=== PATIENT | male | born 1960 | race Caucasian/White ===

== ENCOUNTER 2024-11-26 18:55 | Observation (INO) | payer MEDICAID, SELFPAY ==
[2024-11-26] VITALS (15 sets, daily range): BP systolic 109–147; BP diastolic 59–85; PULSE 68–81; RESP 12–18; TEMP 36.4–37.2; O2SAT 99–100; BMI 17.4
--- NOTE | 2024-11-26 18:57 | ECG_ITS ---
APPROVED REPORT Exam: Resting ECG HR:65 bpm ECG Measurements Heart Rate 65 AXES IN 144 P 85 QRSd 101 QRS 100 QT 383 T 88 QTc 394 Conclusion SINUS RHYTHM WITH MARKED SINUS ARRHYTHMIA POSSIBLE RIGHT ATRIAL ENLARGEMENT [0.25mV P-WAVE] BORDERLINE RIGHT AXIS DEVIATION [QRS AXIS > 90] NONSPECIFIC ST ELEVATION [0.05+ mV ST ELEVATION] Went to [employer] per Dr. Hays Electronically signed by : PAULETTE BROWN, 11/26/2024 19:55:52
[2024-11-26] MEDS: HEPARIN SODIUM 5,000 UNIT/ML VIAL 5000 UNIT IV (19:05)
--- NOTE | 2024-11-26 19:05 | IR_ITS ---
APPROVED REPORT Patient Location: [facility] Consultant: ELBA Morrison RT (R) PROCEDURES Left heart catheterization Left ventriculogram Selective coronary angiogram Left internal mammary angiography Selective engagement of saphenous vein graft to first diagonal artery which backfilled and fill the LAD Bilateral selective renal angiography INDICATION Acute anterior ST elevation myocardial infarction, Coronary artery disease, History of coronary bypass surgery, Renal failure creatinine 2.2 suspected renal artery stenosis, Renovascular hypertension, Informed consent was obtained prior to the procedure. COMPLICATIONS None Estimated Blood Loss: Less than 10 mls TECHNIQUE One percent lidocaine used to anesthetize the right groin. The right femoral artery was accessed via the Seldinger technique and a 5 Hungarian sheath was placed in the right femoral artery. A JL 4, JR4 catheter were used to perform left heart catheterization, left ventriculogram selective coronary angiography as well as selective engagement of the solitary vein graft supplying the LAD and the left internal mammary artery. At the end of the procedure the apparatus was removed the groin is reprepped closure change sheath was removed and attempted Angio-Seal device was used to achieve hemostasis however because of patient's thin stature and scant subcutaneous tissue Angio-Seal device could not be deployed. Manual pressure was held and good hemostasis was achieved ANGIOGRAPHIC RESULTS The left main artery Has severe vascular ectasia with massive dilatation with no significant focal stenosis The left anterior descending artery Has severe ostial proximal vascular ectasia with proximal to mid LAD size disparity which looks possibly as if there is 10 to 20% atherosclerotic plaque. There is competitive flow from the saphenous vein graft The circumflex artery Large nondominant with moderate vascular ectasia with no stenosis greater than 10 to 20% The right coronary artery Large dominant with moderate vascular ectasia with no stenosis greater than 10 to 20% The R[place]LL ventriculogram reveals Normal 60% The left ventricular end-diastolic pressure 5 mmHg ERICKSON graft is patent to the chest wall Saphenous vein graft to the first diagonal artery provides antegrade flow to the first diagonal artery and backfills the LAD Right renal artery singular normal Left renal artery singular normal IMPRESSION Severe vascular ectasia involving the left main artery and proximal LAD as described above Minimal atherosclerotic plaque Patent saphenous vein graft to the first diagonal artery which backfills the LAD and has competitive flow with the stockbridge circulation Normal ejection fraction Low LVEDP PLAN 1. Patient is a thin gentleman and a high risk for groin bleed based on his body habitus. Patient is somewhat combative and hyperactive on the table. 2 mg of Ativan IV was given after the cath in order to assist in sedation and allow patient to remain supine and achieve adequate hemostasis 2. I would like one-on-one nursing for at least 3 to 4 hours with vigilant and persistent right groin nursing assessment watching for hematoma 3. Standard therapy for coronary disease 4. Official echocardiogram in the morning 5. IV fluids 6. Supportive care Electronically signed by : Julio C Hays MD 11/26/2024 20:11:05
--- OUTSIDE RECORDS SUMMARY | 2024-11-26 19:06 | XMS_ITS | Encounter Summary ---
Author Organization [facility] Address [address] [place] [address] Care Team Providers Care Drop Tester Name Role Phone Robbin Jeffrey MD Unavailable [phone] Aurora Anderson MD Unavailable Indigo Jj NP Primary Care Provider [phone] Aurora Anderson MD Unavailable Reason for Referral * CAT Scan (Routine) - Closed Specialty Diagnoses / Procedures Referred By Clari baez Referred To Contact Radiology Diagnoses New daily persistent headache (ndph) Procedures CT brain without IV contrast Indigo Jj NP [address] [place] [address] Phone: tel: fax: Referral ID Status Reason Start Date Expiration Date Visits Re quested Visits Authorized [id number] Closed 04/02/2024 05/31/2024 1 1 Encounter Details Date Type Department Care Team (Late st Contact Info) Description 04/02/2024 Outside Orders [facility] Central Scheduling [address] [place] [address] Indigo Jj NP [address] [place], [place] [id number] New daily persistent headache (ndph) (Primary Dx) Social History Tobacco Use Types Packs/Day Years Used Date Smoking Tobacco: Every Day Cigarettes Smokeless Tobacco: Never Alcohol Use Standard Drinks/Week Comments Never 0 (1 standard drink = 0.6 oz pur e alcohol) Utilities Answer Date Recorded In the past 12 months, has t he electric, gas, oil, or water company threatened to shut off services in your home? No 02/18/2024 Interpersonal Safety Answer Date Record ed How often does anyone, adina andersen family and friends, physically hurt you? Never 02/18/2024 How often does anyone, adina andersen family and friends, insult or talk down to you? Never 02/18/2024 How often does anyone, adina andersen family and friends, threaten you with harm? Never 02/18/2024 How often does anyone, adina andersen family and friends, scream or curse at you? Never 02/18/2024 Housing Stability Answer Date Recorded What is your living situation today? I have a [facility] place to live 02/18/[address] you li ve. Do you have problems with any of the following? None of the above 02/18/2024 Food Insecurity Answer Date Recorded Within the past 12 months, y ou worried that your food would run out before you got money to buy more. Never true 02/18/2024 Within the past 12 months, t he food you bought just didn't last and you didn't have money to get more. Never true 02/18/2024 Transportation Needs Answer Date Record ed In the past 12 months, has l ack of reliable transportation kept you from medical appointments, meetings, work or from getting things needed for daily living? Yes 02/18/2024 Financial Resource Strain Answer Date R ecorded How hard is it for you to pa y for the very basics like food, housing, medical care, and heating? Would you say it is: Not hard at all 02/18/2024 Employment Answer Date Recorded Do you want help finding or keeping work or a job? I do not need or want help 02/18/2024 Family and Community Support Answer Leland e Recorded If for any reason you need h elp with day-to-day activities such as bathing, preparing meals, shopping, managing finances, etc., do you get the help you need? I don't need any help 02/18/2024 Feeling Lonely or Isolated 0 02/17 Educational Attainment Answer Date Saqib rded Do you speak a language other than Nauruan at ho pa? No 02/18/2024 Do you want help with school or training? For example, starting or completing job training or getting a high school diploma, GED or equivalent. No 02/18/2024 Physical Activity Answer Date Recorded Number of minutes of exercise per week 360 02/18/2024 Alcohol Use Answer Date Recorded 5 or More Drinks Per Day Past 12 Months 0 02/18/2024 Depression Answer Date Recorded Calculation of above two rows 0 Stress Answer Date Recorded Stress means a situation in which a person feels tense, restless, nervous, or anxious, or is unable to sleep at night because his or her mind is troubled all the time. Do you feel this kind of stress these days? Not at all 02/18/2024 Disabilities Answer Date Recorded Because of a physical, menta l, or emotional condition, do you have serious difficulty concentrating, remembering, or making decisions? (5 years or older) No 02/18/2024 Because of a physical, menta l, or emotional condition, do you have difficulty doing errands alone such as visiting a doctor's office or shopping? (15 years or older) No 02/18/2024 Substance Use Answer Date Recorded How many times in the past y ear have you used prescription drugs for non-medical reasons? Never 02/18/2024 How many times in the past year have you used [place] legal drugs? Never 02/18/2024 Sex and Gender Information Value Date Recorded Sex Assigned at Not on file Legal Sex Male 1:46 PM CDT Gender Identity Not on file Sexual Orientation Not on file documented as of this encounter Functional Status * Are you deaf or do you have serious difficulty hearing? Answer Date of Assessment Author No 02/24/2024 10:13 AM Clara Voss * Are you blind or do you have serious difficulty seeing, even when wearing glasses? Answer Date of Assessment Author No 02/24/2024 10:13 AM Clara Voss * Do you have serious difficulty walking or climbing stairs? Answer Date of Assessment Author No 02/24/2024 10:13 AM Clara Voss * Do you have serious difficulty dressing or bathing? Answer Date of Assessment Author No 02/24/2024 10:13 AM Clara Voss * Because of a physical, mental, or emotional condition, do you have serious difficulty doing errandsalone such as visiting the doctor? Answer Date of Assessment Author No 02/24/2024 10:13 AM Clara Voss documented as of this encounter Mental Status * Because of a physical, mental, or emotional condition, do you have serious difficulty concentrating, remembering, or making decisions? (5 years old or older) Answer Entry Date Author No 02/24/2024 10:13 AM Clara Voss documented in this encounter Plan of Treatment Scheduled Orders Name Type Priority Associated Diagnoses Orde r Schedule CT brain without IV contrast Imaging Routine New daily persistent headache (ndph) Expected: 04/02/2024, Expires: 05/02/2025 documented as of this encounter Visit Diagnoses Diagnosis New daily persistent headache (ndph)- Primary documented in this encounter Care Teams Drop Tester Relationship Specialty Start Date End Date Indigo Jj, SERA [address] [place] [address] PCP - General Nurse Practitioner 03/06/24 [place] [address] [place] [address] [address] [place], [place] [id number] Cardiothoracic Surgery 02/27/24 [facility] [address] [place] [phone] Interventional Cardiology 02/27/24 Aurora Anderson [facility] [address] [address] [address] [place] [id number] Interventional Cardiology 07/27/24 [facility] 02/20/24 [facility] 02/20/24 documented as of this encounter
--- OUTSIDE RECORDS SUMMARY | 2024-11-26 19:06 | XMS_ITS | Referral Summary ---
Author Organization [employer] Address [address] [place] [address] Care Team Providers Care Manager Location Name Role Phone Robbin Jeffrey MD Unavailable [phone] Aurora Anderson MD Unavailable Indigo Jj NP Primary Care Provider [phone] Aurora Anderson MD Unavailable Encounters Date Type Department Care Team Description 09/01/2024 Travel 09/01/2024 12:54 PM EDT - 09/01/2024 3:12 PM EDT Emergency [facility] Emergency Department [address] [place] [phone] Paul German DO Constipation (Primary Dx); Lower back pain; Kidney cysts; Constipation, unspecified constipation type; Low back pain, unspecified back pain laterality, unspecified chronicity, unspecified whether sciatica present Discharge Disposition: Home or Self Care from Last 3 Months Allergies No known active allergies Medications bupropion HCl (WELLBUTRIN ORAL) Take by mouth Unsure of dosage . Active nicotine 21-14-7 mg/[address] onto the skin. Active Active Problems Problem Noted Date Diagnosed Date Coronary artery disease invo lving [place] coronary artery of [place] heart without angina pectoris 04/01/2024 Primary hypertension 04/01/2024 Mixed hyperlipidemia 04/01/2024 Tobacco abuse 04/01/2024 STEMI (ST elevation myocardial infarction) 02/17 Social History Tobacco Use Types Packs/Day Years Used Date Smoking Tobacco: Every Day Cigarettes Smokeless Tobacco: Never Tobacco Cessation:Ready to Q uit: Not Asked; Counseling Given: Not Answered Alcohol Use Standard Drinks/Week Comments Never 0 [...] your living situation today? I have a [facility] place to live 02/18/2024 Think about the [...] Do you speak a language other than Serbian at [facility]? No 02/18/2024 Do you want help with school or training? For example, starting or completing job training or getting a high school diploma, GED or equivalent. No 02/18/2024 Physical Activity Answer Date Recorded Number of minutes of exercise per week 360 02/18/2024 Alcohol Use Answer Date Recorded 5 or More Drinks Per Day Past 12 Months 0 04/16/2024 Depression Answer Date Recorded Calculation of above [...] on file Sexual Orientation Not on file Last Filed Vital Signs Vital Sign Reading Time Taken Comments Blood Pressure 157/105 09/01/2024 3:00 PM EDT Pulse 62 09/01/2024 3:00 PM EDT Temperature 36.8 C (98.2 F) 09/01/2024 3:00 PM EDT Respiratory Rate 16 09/01/2024 3:00 PM EDT Oxygen Saturation 98% 09/01/2024 1:19 PM EDT Inhaled Oxygen Concentration 40% 02/21/2024 2 :30 PM EDT Weight 56.7 kg (125 lb) 09/01/2024 12:52 PM EDT Height 180.3 cm (5' 11 ) 09/01/2024 12:52 PM EDT Body Mass Index 17.43 09/01/2024 12:52 PM EDT Functional Status * Are you deaf or [...] Author No 02/24/2024 10:13 AM Clara Voss Mental Status * Because of a physical, mental, or emotional condition, do you have serious difficulty concentrating, remembering, or making decisions? (5 years old or older) Answer Entry Date Author No 02/24/2024 10:13 AM Clara Voss Plan of Treatment Not on file Procedures Procedure Name Priority Date/Time Associated Diagnosis Comments CT ABDOMEN/PELVIS WITHOUT IV CONTRAST STAT 09/01/2024 1:57 PM EDT URINALYSIS MICROSCOPIC STAT 1:25 PM EDT URINALYSIS, REFLEX MICROSCOPIC AND CULTURE IF INDICATED STAT 09/01/2024 1:25 PM EDT COMPREHENSIVE METABOLIC PANEL STAT 09/01/2024 1:12 PM EDT CBC W/ AUTO DIFF STAT 09/01/2024 1:12 PM EDT LIPID PANEL Routine 02/20/2024 5:39 AM EDT from Last 3 Months or Most Recently Relevant to Health Maintenance Results * CT ABDOMEN/PELVIS WITHOUT IV CONTRAST Renal Stone Protocol (09/01/2024 1:57 PM EDT) Anatomical Region Laterality Modality Abdomen, Pelvis Computed Tomogra phy (CT) 09/01/2024 2:30 PM EDT Impressions 09/01/2024 2:37 PM EDT No nephrolithiasis. Bilateral renal cysts. Small focus of increased attenuation in the right kidney that likely demonstrates a small complex cyst. Large amount stool noted throughout the colon. Images reviewed, interpreted, and dictated by Dr. Riky Brewer. Transcribed by Hilda Rodriguez PA-C. Narrative 09/01/2024 2:[address] SCAN OF THE ABDOMEN AND PELVIS WITHOUT CONTRAST 09/01/2024 1:44 PM HISTORY: Acute left-sided flank pain, hematuria. COMPARISON: None. PROCEDURE: Axial images were obtained from the lung bases to the pubic symphysis by computed tomography. This study was performed with techniques to keep radiation doses as low as reasonably achievable, (ALARA). Individualized dose reduction techniques using automated exposure control or adjustment of mA and/or kV according to the patient size were employed. FINDINGS: ABDOMEN: The lung bases are clear. The heart size is normal. The limited non-contrast images of the liver are unremarkable. The gallbladder is moderately distended. The spleen is unremarkable. No adrenal masses are seen. The aorta is normal in caliber. There are dense calcifications in the abdominal aorta and iliac vessels. There is no significant free fluid or adenopathy. There is a benign-appearing cyst in the right kidney measuring 2.3 cm. There is a small focus of increased attenuation in the right kidney measuring is 0.6 cm identified on image 39 of series 2. This likely represents a small complex cyst. There is a benign-appearing cyst in the left kidney measuring 4.9 x 4.3 cm. There is no nephrolithiasis. There is no hydronephrosis. PELVIS: The GI tract demonstrates no obstruction. The appendix is not identified. There is a large amount stool noted throughout the colon. There is descending and sigmoid diverticulosis. The urinary bladder is unremarkable. There is no fluid or adenopathy. Procedure Note Riky Brewer MD - 09/01/2024 CT SCAN OF THE ABDOMEN AND PELVIS WITHOUT CONTRAST 09/01/2024 1:44 PM HISTORY: Acute left-sided flank pain, hematuria. COMPARISON: None. PROCEDURE: Axial images were obtained from the lung bases to the pubic symphysis by computed tomography. This study was performed with techniques to keep radiation doses as low as reasonably achievable, (ALARA). Individualized dose reduction techniques using automated exposure control or adjustment of mA and/or kV according to the patient size were employed. FINDINGS: ABDOMEN: The lung bases are clear. The heart size is normal. The limited non-contrast images of the liver are unremarkable. The gallbladder is moderately distended. The spleen is unremarkable. No adrenal masses are seen. The aorta is normal in caliber. There are dense calcifications in the abdominal aorta and iliac vessels. There is no significant free fluid or adenopathy. There is a benign-appearing cyst in the right kidney measuring 2.3 cm. There is a small focus of increased attenuation in the right kidney measuring is 0.6 cm identified on image 39 of series 2. This likely represents a small complex cyst. There is a benign-appearing cyst in the left kidney measuring 4.9 x 4.3 cm. There is no nephrolithiasis. There is no hydronephrosis. PELVIS: The GI tract demonstrates no obstruction. The appendix is not identified. There is a large amount stool noted throughout the colon. There is descending and sigmoid diverticulosis. The urinary bladder is unremarkable. There is no fluid or adenopathy. IMPRESSION: No nephrolithiasis. Bilateral renal cysts. Small focus of increased attenuation in the right kidney that likely demonstrates a small complex cyst. Large amount stool noted throughout the colon. Images reviewed, interpreted, and dictated by Dr. Riky Brewer. Transcribed by Hilda Rodriguez PA-C. Brunilda Aguilera PA-C IMG CT ORDERABLES Final Result * (ABNORMAL) Urinalysis, Reflex Microscopic and Culture If Indicated (09/01/2024 1:25 PM EDT) Color, UA Light Yellow 09/01/2024 1:32 PM EDT [facility] Clarity, UA Clear 09/01/2024 1:32 PM EDT [facility] Specific [place], UA 1.010 1.002 - 1.030 09/01/2024 1:32 PM EDT [facility] pH, UA 6.5 5.0 - 9.0 09/01/2024 1:32 PM EDT [facility] Leukocytes, UA Negative Negative 09/01/2024 1:32 PM EDT [facility] Nitrite, UA Negative Negative 09/01/2024 1:32 PM EDT [facility] Protein, UA Negative Negative 09/01/2024 1:32 PM EDT [facility] Glucose, UA Negative Negative 09/01/2024 1:32 PM EDT [facility] Ketones, UA Negative Negative 09/01/2024 1:32 PM EDT [facility] Bilirubin, UA Negative Negative 09/01/2024 1:32 PM EDT [facility] Blood, UA 2+(A) Negative 09/01/2024 1:32 PM EDT [facility] Urobilinogen, UA 0.2 mg/dL Normal 09/01/2024 1:32 PM EDT [facility] Specimen Source Urine, Clean Catch 09/01/2024 1:32 PM EDT [facility] Urine URINE SPECIMEN COLLECTION, CLEAN CATCH / Unknown 09/01/2024 1:25 PM EDT 09/01/2024 1:26 PM EDT us Brunilda Aguilera PA-C URINE ORDERABLES Final Result [facility] [address] [place] [address] [phone] * (ABNORMAL) Urinalysis Microscopic Only (09/01/2024 1:25 PM EDT) WBC, UA Occasional None Seen, Occasional , 0-5 /HPF 09/01/2024 1:40 PM EDT [facility] RBC, UA 10-20(A) None Seen, Rare /HPF 09/01/2024 1:40 PM EDT [facility] Bacteria, UA Trace(A) None Seen 09/01/2024 1:40 PM EDT [facility] Mucus Trace Trace 09/01/2024 1:40 PM EDT [facility] Urine URINE SPECIMEN COLLECTION, CLEAN CATCH / Unknown 09/01/2024 1:25 PM EDT 09/01/2024 1:26 PM EDT Brunilda Aguilera PA-C URINE ORDERABLES Final Result [facility] [address] [place] [address] * (ABNORMAL) CBC with Auto Diff (09/01/2024 1:12 PM EDT) WBC 6.6 4.8 - 10.8 K/ L 09/01/2024 1:29 PM EDT [facility] RBC 4.88 3.80 - 5.20 M/ L 09/01/2024 1:29 PM EDT [facility] Hemoglobin 14.6 12.8 - 17.4 GM/DL 09/01/2024 1:29 PM EDT [facility] Hematocrit 44.2 39.0 - 51.0 % 09/01/2024 1:29 PM EDT [facility] MCV 91 81 - 101 fL 09/01/2024 1:29 PM EDT [facility] MCH 29.9 27.0 - 34.0 pg 09/01/2024 1:29 PM EDT [facility] MCHC 33.0 32.0 - 36.0 GM/DL 09/01/2024 1:29 PM EDT [facility] RDW 13.3 11.5 - 14.5 % 09/01/2024 1:29 PM EDT [facility] Platelets 257 150 - 400 K/CU MM 09/01/2024 1:29 PM EDT [facility] MPV 10.1 9.4 - 12.4 fL 09/01/2024 1:29 PM EDT [facility] Nucleated Red Blood Cell 0.0 0 - 0.2 % 09/01/2024 1:29 PM EDT [facility] % Neutros 51 37 - 80 % 09/01/2024 1:29 PM EDT [facility] % Lymphs 33 10 - 50 % 09/01/2024 1:29 PM EDT [facility] % Monos 11 5 - 13 % 09/01/2024 1:29 PM EDT [facility] % Eos 4 0 - 7 % 09/01/2024 1:29 PM EDT [facility] % Baso 1 0 - 3 % 09/01/2024 1:29 PM EDT [facility] NRBC Absolute <0.01 0 - 0.012 K/ul 09/01/2024 1:29 PM EDT [facility] # Neutros 3.33 2.00 - 6.90 K/ L 09/01/2024 1:29 PM EDT [facility] # Lymphs 2.18 0.60 - 3.40 K/ L 09/01/2024 1:29 PM EDT [facility] # Monos 0.70 0.00 - 0.90 K/ L 09/01/2024 1:29 PM EDT [facility] # Eos 0.24 0.00 - 0.70 K/ L 09/01/2024 1:29 PM EDT [facility] # Baso 0.07 0.00 - 0.20 K/ L 09/01/2024 1:29 PM EDT [facility] Immature Granulocytes-Re lative 0.90 % 09/01/2024 1:29 PM EDT [facility] # IG 0.06(H) 0.00 - 0.00 K/uL 09/01/2024 1:29 PM EDT [facility] Blood Venipuncture / Unknown 09/01/2024 1:12 PM EDT 09/01/2024 1:16 PM EDT Narrative [facility] - 09/01/2024 1:29 PM EDT When CBC w/ Auto Diff is ordered the lab will add a Manual Differential as a quality check at no additional charge if: Lymphocytes greater than seventy five percent with normal or increased WBC Monocytes greater than Fifteen percent Basophil greater than four percent Bands >10% or several immature myeloids are seen on scan Blast? Flag noted Atypical Lymph flag noted us Brunilda Aguilera PA-C LAB BLOOD ORDERABLES Final Resu lt [facility] [address] [place] [address] * (ABNORMAL) Comprehensive metabolic panel (09/01/2024 1:12 PM EDT) Sodium 138 136 - 145 meq/L 09/01/2024 1:37 PM EDT [facility] Potassium 4.0 3.5 - 5.1 meq/L 09/01/2024 1:37 PM EDT [facility] Chloride 104 98 - 107 meq/L 09/01/2024 1:37 PM EDT [facility] CO2 30 21 - 32 meq/L 09/01/2024 1:37 PM EDT [facility] Calcium 9.0 8.5 - 10.1 mg/dL 09/01/2024 1:37 PM EDT [facility] Glucose 101(H) 70 - 99 mg/dL 09/01/2024 1:37 PM EDT [facility] BUN 16 7 - 18 mg/dL 09/01/2024 1:37 PM EDT [facility] Creatinine 1.10 0.70 - 1.20 mg/dL 09/01/2024 1:37 PM EDT [facility] BUN/Creatinine 15 09/01/2024 1:37 PM EDT [facility] Albumin 3.7 3.4 - 5.0 g/dL 09/01/2024 1:37 PM EDT [facility] Alkaline Phosphatase 87 46 - 116 U/L 09/01/2024 1:37 PM EDT [facility] ALT 14 12 - 78 U/L 09/01/2024 1:37 PM EDT [facility] AST 16 15 - 37 U/L 09/01/2024 1:37 PM EDT [facility] Total Bilirubin 0.3 0.2 - 1.0 mg/dL 09/01/2024 1:37 PM EDT [facility] Protein, Total 7.6 6.4 - 8.2 gm/dL 09/01/2024 1:37 PM EDT [facility] Anion Gap 8(L) 11 - 22 09/01/2024 1:37 PM EDT [facility] A/G Ratio 0.9 09/01/2024 1:37 PM EDT [facility] Globulin 3.9 g/dL 09/01/2024 1:37 PM EDT [facility] Osmolality Calc 277.0 mOsm/kg 1:37 PM EDT [facility] eGFR (mL/min/1.73m2) >60 >=60 mL/min/1.7 3m2 09/01/2024 1:37 PM EDT [facility] Comment:ESTIMATED GFR IS NOT ACCURATE CREATININE CLEARANCE IN PREDICTING GLOMERULAR FILTRATION RATE. ESTIMATED GFR IS NOT APPLICABLE FOR DIALYSIS PATIENTS. Blood Venipuncture / Unknown 09/01/2024 1:12 PM EDT 09/01/2024 1:16 PM EDT us Brunilda Aguilera PA-C LAB BLOOD ORDERABLES Final Resu lt [facility] [address] [place] [address], [facility] [phone] * (ABNORMAL) Lipid panel (02/20/2024 5:39 AM EDT) Triglycerides 74 0 - 249 mg/dL 02/20/2024 6:44 AM EDT [facility] Cholesterol 200(H) 0 - 199 mg/dL 02/20/2024 6:44 AM EDT [facility] Comment: 200 to 239 mg/dL = Moderate (borderline) >239 mg/dL = High HDL Cholesterol 48 >=40 mg/dL 02/20/2024 6:44 AM EDT [facility] Comment: >=60 mg/dL = Desirable <40 mg/dL = Increased Risk All other components are listed individually or are calculations VLDL Cholesterol 14.8 5 - 40 mg/dL 02/20/2024 6:44 AM EDT [facility] Cholesterol/HDL ratio 4.2(H) 0.0 - 3.2 02/20/2024 6:44 AM EDT [facility] LDl/HDL Ratio 3 0 - 4 02/20/2024 6:44 AM EDT [facility] RISK COMP 4 02/20/2024 6:44 AM EDT [facility] LDL Cholesterol, Calculated 137(H) 0 - 99 mg/dL 02/20/2024 6:44 AM EDT [facility] Blood Venipuncture / Unknown 02/20/2024 5:39 AM EDT 02/20/2024 5:59 AM EDT [facility] LAB BLOOD ORDERABLES Final Result Performing Organization Address [facility]/State/[facility] Co de Phone Number [facility] [address] [phone] from Last 3 Months or Most Recently Relevant to Health Maintenance Insurance [employer]ICA[employer] Advance Directives For more information, please contact: [phone] * Full Code (Latest Code Status on File) Date Activated Date Inactivated Comments 02/21/2024 10:53 AM 02/24/2024 12:54 PM * Full Code Date Activated Date Inactivated Comments 02/18/2024 4:06 AM 02/21/2024 10:53 AM Care Teams Manager Location Relationship Specialty Start Date End Date Indigo Jj, SERA [address] [place] [address] PCP - General Nurse Practitioner 03/06/24 Robbin Jeffrey MD [address] [place] [address] [address] [place], [place] [id number] Cardiothoracic Surgery 02/27/24 Aurora Anderson MD [address] [place], [place] [address] , [place] [phone] Interventional Cardiology 02/27/24 Aurora Anderson MD [address] [phone] Interventional Cardiology 07/27/24 [facility] 02/20/24 [facility] 02/20/24
--- OUTSIDE RECORDS SUMMARY | 2024-11-26 19:06 | XMS_ITS | Clinical Summary ---
Author Organization [employer] Address [address] [place] [address] Care Team Providers Care Truer Pinion And Wheel Name Role Phone Robbin Jeffrey MD Unavailable [phone] Aurora Anderson MD Unavailable Indigo Jj NP Primary Care Provider [phone] Aurora Anderson MD Unavailable Allergies No known active allergies Medications bupropion HCl (WELLBUTRIN ORAL) Take by mouth Unsure of dosage . Active nicotine 21-14-7 mg/[address] the skin. Active Active Problems Problem Noted Date Diagnosed Date Coronary artery disease invo [place]ving [place] coronary artery of [place] heart without angina pectoris 04/01/2024 Primary hypertension 04/01/2024 Mixed hyperlipidemia 04/01/2024 Tobacco abuse 04/01/2024 STEMI (ST elevation myocardial infarction) 02/17 Encounters Date Type Department Care Team Description 09/01/2024 12:54 PM EDT - 09/01/2024 3:12 PM EDT Emergency [facility] Emergency Department [address] [place] [phone] Paul German DO Constipation (Primary Dx); Lower back pain; Kidney cysts; Constipation, unspecified constipation type; Low back pain, unspecified back pain laterality, unspecified chronicity, unspecified whether sciatica present Discharge Disposition: Home or Self Care 09/01/2024 Travel from Last 3 Months Social History Tobacco Use Types Packs/Day Years [...] your living situation today? I have a [facility] place to live 02/18/2024 Think about the [...] Do you speak a language other than [place] at [facility]? No 02/18/2024 Do you want help with [...] Mass Index 17.43 09/01/2024 12:52 PM EDT Plan of Treatment Health Maintenance Due Date Last Done Comments CT Colonography 1960 Colonoscopy 1960 Colorectal Cancer Screening 1960 FOBT/FIT 1960 Fit-DNA (Cologuard) 1960 Sigmoidoscopy 1960 Depression Screening (12+) 1972 HIV Screening 11/07/1975 Hepatitis C Screening 1978 DTAP/TDAP/TD VACCINES (1 - Tdap) 11/07/1979 Pneumococcal 50+ years (1 of 2 - PCV) 11/07/1979 Shingles Vaccine (Zoster) (1 of 2) 2010 Respiratory Syncytial Virus (RSV) Adult or (1 - Risk 60-74 years 1-dose series) 2020 COVID-19 VACCINE ( - 2023- season) 2024 Influenza Vaccine (Season Ended) 2025 Tobacco Cessation Counseling and Screening (12+) 03/2503/25/2024 Lipid Panel 02/19/2027 02/20/2024 Procedures Procedure Name Priority Date/Time Associated Diagnosis [...] by Hilda Rodriguez PA-C. Brunilda Aguilera PA-C IM CT ORDERABLES Final Result * (ABNORMAL) Urinalysis, Reflex Microscopic and Culture If Indicated (09/01/2024 1:25 PM EDT) Color, UA Light Yellow 09/01/2024 1:32 PM EDT [facility] Clarity, UA Clear 09/01/2024 1:32 PM EDT [facility] Specific [place], UA 1.010 1.002 - 1.030 09/01/2024 1:32 PM EDT [facility] pH, UA 6.5 5.0 - 9.0 09/01/2024 1:32 PM EDT [facility] Leukocytes, UA Negative Negative 09/01/2024 1:32 PM EDT [facility] Nitrite, UA Negative Negative 09/01/2024 1:32 PM EDT [facility] Protein, UA Negative Negative 09/01/2024 1:32 PM EDT [facility] Glucose, UA Negative Negative 09/01/2024 1:32 PM EDT [facility] Ketones, UA Negative Negative 09/01/2024 1:32 PM EDT [facility] Bilirubin, UA Negative Negative 09/01/2024 1:32 PM EDT [facility] Blood, UA 2+(A) Negative 09/01/2024 1:32 PM EDT [facility] Urobilinogen, UA 0.2 mg/dL Normal 09/01/2024 1:32 PM EDT [facility] Specimen Source Urine, Clean Catch 09/01/2024 1:32 PM EDT [facility] Urine URINE SPECIMEN COLLECTION, CLEAN CATCH / Unknown 09/01/2024 1:25 PM EDT 09/01/2024 1:26 PM EDT us Brunilda Aguilera PA-C URINE ORDERABLES Final Result [facility] [address] [place] [id number] [phone] * (ABNORMAL) Urinalysis Microscopic Only (09/01/2024 1:25 PM EDT) WBC, UA Occasional None Seen, Occasional , 0-5 /HPF 09/01/2024 1:40 PM EDT [facility] RBC, UA 10-20(A) None Seen, Rare /HPF 09/01/2024 1:40 PM EDT [facility] Bacteria, UA Trace(A) None Seen 09/01/2024 1:40 PM EDT [facility] Mucus Trace Trace 09/01/2024 1:40 PM EDT [facility] Urine URINE SPECIMEN COLLECTION, CLEAN CATCH / Unknown 09/01/2024 1:25 PM EDT 09/01/2024 1:26 PM EDT Brunilda Aguilera PA-C URINE ORDERABLES Final Result [facility] [address] [place] [address], [facility] [phone] * (ABNORMAL) CBC with Auto Diff (09/01/2024 1:12 PM EDT) WBC 6.6 4.8 - 10.8 K/ L 09/01/2024 1:29 PM EDT [facility] RBC 4.88 3.80 - 5.20 M/ L 09/01/2024 1:29 PM EDT [facility] Hemoglobin 14.6 12.8 - 17.4 GM/DL 09/01/2024 1:29 PM EDT [facility] Hematocrit 44.2 39.0 - 51.0 % 09/01/2024 1:29 PM EDT [facility] MCV 91 81 - 101 fL 09/01/2024 1:29 PM EDT [facility] MCH 29.9 27.0 - 34.0 pg 09/01/2024 1:29 PM EDT [facility] MCHC 33.0 32.0 - 36.0 GM/DL 09/01/2024 1:29 PM EDT [facility] RDW 13.3 11.5 - 14.5 % 09/01/2024 1:29 PM EDT [facility] Platelets 257 150 - 400 K/CU MM 09/01/2024 1:29 PM EDT [facility] MPV 10.1 9.4 - 12.4 fL 09/01/2024 1:29 PM EDT [facility] Nucleated Red Blood Cell 0.0 0 - 0.2 % 09/01/2024 1:29 PM EDT [facility] % Neutros 51 37 - 80 % 09/01/2024 1:29 PM EDT [facility] % Lymphs 33 10 - 50 % 09/01/2024 1:29 PM EDT [facility] % Monos 11 5 - 13 % 09/01/2024 1:29 PM EDT [facility] % Eos 4 0 - 7 % 09/01/2024 1:29 PM EDT [facility] % Baso 1 0 - 3 % 09/01/2024 1:29 PM EDT [facility] NRBC Absolute <0.01 0 - 0.012 K/ul 09/01/2024 1:29 PM EDT [facility] # Neutros 3.33 2.00 - 6.90 K/ L 09/01/2024 1:29 PM EDT [facility] # Lymphs 2.18 0.60 - 3.40 K/ L 09/01/2024 1:29 PM EDT [facility] # Monos 0.70 0.00 - 0.90 K/ L 09/01/2024 1:29 PM EDT [facility] # Eos 0.24 0.00 - 0.70 K/ L 09/01/2024 1:29 PM EDT [facility] # Baso 0.07 0.00 - 0.20 K/ L 09/01/2024 1:29 PM EDT [facility] Immature Granulocytes-Re lative 0.90 % 09/01/2024 1:29 PM EDT [facility] # IG 0.06(H) 0.00 - 0.00 K/uL 09/01/2024 1:29 PM EDT [facility] Blood Venipuncture / Unknown 09/01/2024 1:12 PM EDT 09/01/2024 1:16 PM EDT Narrative [facility] - 09/01/2024 1:29 PM EDT When [...] PA-C LAB BLOOD ORDERABLES Final Resu lt [facility] [address] [place], [place] [address] [phone] * (ABNORMAL) Comprehensive metabolic panel (09/01/2024 1:12 PM EDT) Sodium 138 136 - 145 meq/L 09/01/2024 1:37 PM EDT [facility] Potassium 4.0 3.5 - 5.1 meq/L 09/01/2024 1:37 PM EDT [facility] Chloride 104 98 - 107 meq/L 09/01/2024 1:37 PM EDT [facility] CO2 30 21 - 32 meq/L 09/01/2024 1:37 PM EDT [facility] Calcium 9.0 8.5 - 10.1 mg/dL 09/01/2024 1:37 PM EDT [facility] Glucose 101(H) 70 - 99 mg/dL 09/01/2024 1:37 PM EDT [facility] BUN 16 7 - 18 mg/dL 09/01/2024 1:37 PM EDT [facility] Creatinine 1.10 0.70 - 1.20 mg/dL 09/01/2024 1:37 PM EDT [facility] BUN/Creatinine 15 09/01/2024 1:37 PM EDT [facility] Albumin 3.7 3.4 - 5.0 g/dL 09/01/2024 1:37 PM EDT [facility] Alkaline Phosphatase 87 46 - 116 U/L 09/01/2024 1:37 PM EDT [facility] ALT 14 12 - 78 U/L 09/01/2024 1:37 PM EDT [facility] AST 16 15 - 37 U/L 09/01/2024 1:37 PM EDT [facility] Total Bilirubin 0.3 0.2 - 1.0 mg/dL 09/01/2024 1:37 PM EDT [facility] Protein, Total 7.6 6.4 - 8.2 gm/dL 09/01/2024 1:37 PM EDT [facility] Anion Gap 8(L) 11 - 22 09/01/2024 1:37 PM EDT [facility] A/G Ratio 0.9 09/01/2024 1:37 PM EDT [facility] Globulin 3.9 g/dL 09/01/2024 1:37 PM EDT [facility] Osmolality Calc 277.0 mOsm/kg 1:37 PM EDT [facility] eGFR (mL/min/1.73m2) >60 >=60 mL/min/1.7 3m2 09/01/2024 1:37 PM EDT [facility] Comment:ESTIMATED GFR IS NOT ACCURATE CREATININE CLEARANCE IN PREDICTING GLOMERULAR FILTRATION RATE. ESTIMATED GFR IS NOT APPLICABLE FOR DIALYSIS PATIENTS. Blood Venipuncture / Unknown 09/01/2024 1:12 PM EDT 09/01/2024 1:16 PM EDT us Brunilda Aguilera PA-C LAB BLOOD ORDERABLES Final Resu lt [facility] [address] [place] [id number], [facility] [phone] * (ABNORMAL) Lipid panel (02/20/2024 5:39 AM EDT) Triglycerides 74 0 - 249 mg/dL 02/20/2024 6:44 AM EDT [facility] Cholesterol 200(H) 0 - 199 mg/dL 02/20/2024 6:44 AM EDT [facility] Comment: 200 to 239 mg/dL = Moderate (borderline) >239 mg/dL = High HDL Cholesterol 48 >=40 mg/dL 02/20/2024 6:44 AM EDT [facility] Comment: >=60 mg/dL = Desirable <40 mg/dL = Increased Risk All other components are listed individually or are calculations VLDL Cholesterol 14.8 5 - 40 mg/dL 02/20/2024 6:44 AM EDT [facility] Cholesterol/HDL ratio 4.2(H) 0.0 - 3.2 02/20/2024 6:44 AM EDT [facility] LDl/HDL Ratio 3 0 - 4 02/20/2024 6:44 AM EDT [facility] RISK COMP 4 02/20/2024 6:44 AM EDT [facility] LDL Cholesterol, Calculated 137(H) 0 - 99 mg/dL 02/20/2024 6:44 AM EDT [facility] Blood Venipuncture / Unknown 02/20/2024 5:39 AM EDT 02/20/2024 5:59 AM EDT Karen Gomesland GILA LAB BLOOD ORDERABLES Final Result [facility] [address] [phone] from Last 3 Months or Most Recently Relevant to Health Maintenance [place] [address] [place] [address] MEDICAID Advance Directives For more information, please contact: [phone] * Full Code (Latest Code Status on File) Date Activated Date Inactivated Comments 02/21/2024 10:53 AM 02/24/2024 12:54 PM * Full Code Date Activated Date Inactivated Comments 02/18/2024 4:06 AM 02/21/2024 10:53 AM Care Teams Truer Pin[employer] And Wheel Relationship Specialty Start Date End Date Indigo Jj, SERA [address] [place] [id number] PCP - General Nurse Practitioner 03/06/24 Robbin Jeffrey MD [address] [place] [address] [address] [place], [place] [id number] Cardiothoracic Surgery 02/27/24 Aurora Anderson MD [address], [facility] [address] [place] [phone] Interventional Cardiology 02/27/24 Aurora Anderson MD [address], [facility] [address] [place] [address] Interventional Cardiology 07/27/24 [facility] 02/20/24 [facility]iac Rehab 02/20/24
[2024-11-26 19:07] LABS: Basophils # 0.1 K/mm3 (0-0.2); Basophils % 0.6 % (0.1-2.0); Eosinophils # 0.2 Kmm3 (0.0-0.4); Eosinophils % 1.4 % (0.1-12.0); Hematocrit 45.4 % (42.0-52.0); Hemoglobin 15.5 g/dL (14.1-18.0); Immature Granulocytes # 0.04 10^3uL; Immature Granulocytes % 0.3 %; Lymphocytes # 2.2 K/mm3 (0.7-4.5); Lymphocytes % 18.5 % (10-50); Mean Corpuscular HGB Conc 34.1 g/dL (31.8-35.4); Mean Corpuscular Hemoglobin 29.9 pg (27.0-31.2); Mean Corpuscular Volume 87.5 fl (80-94); Monocytes % 8.4 % (1.7-9.3); Neutrophils # 8.3 K/mm3 (1.8-7.8); Neutrophils % 70.8 % (37.0-80.0); Nucleated Red Blood Cells # 0 10^3/uL; Nucleated Red Blood Cells % 0 %; Platelet Count 288 K/mm3 (142-424); Red Blood Count 5.19 M/mm3 (4.60-6.20); Red Cell Distribution Width 13.1 % (11.5-17.5); Red Cell Distribution Width-SD 41.9 fL; White Blood Count 11.7 K/mm3 (4.8-10.8)
[2024-11-26 19:09] LABS: Lactate Venous 1.4 mmol/L (0.4-2.0); VBG Base Excess -1.4 mmol/L (-2.4-2.3); VBG HCO3 24.9 mmol/L (23-30); VBG Oxygen Saturation 40.7 % (50-70); VBG PCO2 51.2 mmol/L (35-51); VBG PH 7.31 mmol/L (7.31-7.41); VBG PO2 24.6 mmol/L (28-40); VBG Total CO2 26.5 mmol/L (23-27)
[2024-11-26 19:12] LABS: Albumin Level 5.4 g/dl (3.5-5.0); Chloride 89 mmol/L (98-107); Potassium 4.4 mmoL/L (3.5-5.1); Sodium 130 mmol/L (136-145)
[2024-11-26 19:15] LABS: Alanine Aminotransferase 21 U/L (12-78); Albumin/Globulin Ratio 1.3 (1.1-1.8); Alkaline Phosphatase 97 U/L (38-126); Anion Gap 19.4 mEq/L (5-15); Aspartate Amino Transferase 51 U/L (17-59); Bilirubin,Total 0.7 mg/dl (0.2-1.3); Blood Urea Nitrogen 36 mg/dl (9-20); Calcium 9.9 mg/dl (8.4-10.2); Carbon Dioxide 26 mmol/L (22.0-30.0); Creatine Kinase 630 U/L (55-170); Creatinine Clearance Estimated 27 mL/min (50-200); Estimated Glomerular Filt Rate 30 ml/min (>60); GFR (African American) 37 ML/MIN (>60); Globulin 4.2 g/dL (1.3-3.2); Glucose 110 mg/dl (74-100); Total Protein,Serum 9.6 g/dl (6.3-8.2)
[2024-11-26 19:17] LABS: Activated Partial Thrombo Time 25.1 seconds (22.8-30.6); INR 0.98 (0.9-1.1); Prothrombin Time 10.9 seconds (10.1-12.5)
[2024-11-26 19:21] LABS: Magnesium 2.3 mg/dl (1.6-2.3); Phosphorous 6.1 mg/dl (2.5-4.5)
--- NOTE | 2024-11-26 19:24 | PC.NURSE ---
Late entry: 1910 cathead operator calls to report that they are ready for patient, pt placed on zoll monitoring and taken to cathead operator per this RN, Brayden winter, and CESAR mack.
[2024-11-26] MEDS: LIDOCAINE 1% 10ML MDV 10 ML IJ (19:27)
[2024-11-26] MEDS: HEPARIN 1,000 UNITS/500ML NS (CATH LAB) 3000 UNIT IV (19:27)
[2024-11-26] MEDS: 0.9 % SODIUM CHLORIDE 500 ML 25 ML IV (19:27)
[2024-11-26] MEDS: diphenhydrAMINE 50MG/ML VIAL 50 MG IV (19:28)
[2024-11-26] MEDS: ONDANSETRON 4MG/2ML VIAL 4 MG IV (19:28)
[2024-11-26 19:35] LABS: Troponin I < 0.01 ng/ml (0.00-0.034)
--- NOTE | 2024-11-26 19:35 | HMH.EDCP ---
Discharge Plan Disposition Patient Disposition: Admitted Condition: Fair Clinical Impressions Clinical Impression: ACS (acute coronary syndrome), Rhabdomyolysis Discharge ED Provider: Indigo Nichols HPI General Chief Complaint: Chest Pain Stated Complaint: STEMI Time Seen by Provider: 11/26/24 19:00 Mode of Arrival: EMS Source of Information: Patient and EMS Description of Symptoms (Recalled from ER Triage Doc. by RN): Pt presents to the ed via ems with c/o epigastric/chest cramping that began today approx 1500. Pt reports pain progressing to tightness to left arm. EMS with 12 lead in the field reports possible stemi alert. Pt arrives to room EKG performed and per Dr Hays pt to go to cath. Pt AOx4, nad noted, rr even and non labored, skin pwd. History of Present Illness HPI narrative: This patient is a 64-year-old male with a history of CAD status post CABG presenting to the emergency department for evaluation as a STEMI alert. EMS had texted EKG to Dr. Hays en route, and Dr. Hays activated STEMI alert. Patient reports he started having chest pain going down his left arm that he describes as a cramping around 1500. 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 The pain continued, so he called EMS. EMS noted significant ST changes on EKG in the anterolateral leads. Given this, they sent Dr. Hays who activated the [employer]. Patient received aspirin prior to arrival. He was normotensive and did not receive nitroglycerin. He reports he supposed be on medications including a blood thinner, he is not sure what, but he has not been taking any medications. His CABG was in February at [facility]. Related Data Allergies Allergy/AdvReac Type Severity Reaction Status Date / Time No Known Allergies Allergy Verified 11/26/24 19:10 [facility] Disclaimer: The information contained in this section may have been updated after the patient was seen, as this information can be updated by other users. Social History Smoking Status: Current every day smoker alcohol intake: never current occupational status: employed Travel in the last 8 weeks?: None ROS Obtained: Yes All systems reviewed & no additional complaints except as documented Physical Exam General General appearance: alert and in no apparent distress Comment: Thin, crying out in pain Head Head exam: atraumatic and normocephalic Eye Eye exam: Present normal appearance, PERRL and EOMI ENT ENT exam: Present normal exam, normal oropharynx, mucous membranes moist and normal external ear exam Neck Neck exam: Present normal inspection, full ROM and trachea midline; Absent tenderness Chest Chest inspection: Present normal inspection and symmetric chest wall rise; Absent tenderness Respiratory Respiratory exam: Present normal lung sounds bilaterally; Absent respiratory distress, wheezes, stridor or accessory muscle use Cardiovascular Cardiovascular exam: Present regular rate and normal rhythm Abdominal Exam Abdominal exam: Present soft; Absent distention, tenderness or guarding Extremities Exam Extremities exam: Present normal inspection, full ROM and normal capillary refill; Absent tenderness or edema Back Exam Back exam: Present normal inspection and full ROM; Absent tenderness Neurological Exam Neurological exam: Present alert, oriented X3, CN II-XII intact and normal gait; Absent motor sensory deficit Psychiatric Psychiatric exam: Present normal affect and normal mood Skin Skin exam: Present warm and dry HEART Score HEART Score HEART Score assessment performed?: No Critical Care Critical Care Time Critical Care Time: No Medical Decision Making Navin Inquiry Pt receiving controlled substance: No Vital Signs Vital Signs: 11/26/24 19:04 11/26/24 19:04 11/26/24 19:11 Temperature 98.9 F 98.9 F Temperature Source Oral Pulse Rate 73 73 Pulse Rate [Radial] 73 Respiratory Rate 16 16 Blood Pressure 127/83 Blood Pressure [Right Arm] 127/83 Blood Pressure Mean [Right Arm] 97 Blood Pressure Position Sitting Blood Pressure Position [Right Arm] Sitting 02 Sat by Pulse Oximetry 100 Oxygen Delivery Method Room Air Room Air Lab Data Labs: Lab Results 11/26/24 18:58: WBC 11.7 H, RBC 5.19, Hgb 15.5, Hct 45.4, MCV 87.5, MCH 29.9, MCHC 34.1, RDW 13.1, Plt Count 288, MPV 10.0, Neut % (Auto) 70.8, Lymph % (Auto) 18.5, [place] % (Auto) 8.4, Eos % (Auto) 1.4, Baso % (Auto) 0.6, Neut # (Auto) 8.3 H, Lymph # (Auto) 2.2, [place] # (Auto) 1.0, Eos # (Auto) 0.2, Baso # (Auto) 0.1, PT 10.9, INR 0.98, APTT 25.1, VBG pH 7.31, VBG pCO2 51.2 H, VBG pO2 24.6 L, VBG HCO3 24.9, VBG Total CO2 26.5, VBG O2 Saturation 40.7 L, VBG Base Excess -1.4, VBG Lactic Acid 1.4, Sodium 130 L, Potassium 4.4, Chloride 89 L, Carbon Dioxide 26, Anion Gap 19.4 H, BUN 36 H, Creatinine 2.20 H, Estimated Creat Clear 27, Estimated GFR 30 L, Est GFR ( Amer) 37 L, Glucose 110 H, Calcium 9.9, Phosphorus 6.1 H, Magnesium 2.3, Total Bilirubin 0.7, AST 51, ALT 21, Alkaline Phosphatase 97, Total Creatine Kinase 630 H*, Troponin I < 0.01, Total Protein 9.6 H, Albumin 5.4 H, Globulin 4.2 H, Albumin/Globulin Ratio 1.3 11/26/24 18:58 11/26/24 18:58 Response Orders (Tests/Meds): ED MEDICATIONS Generic Name Dose Route Start Last Admin Trade Name Freq PRN Reason Stop Dose Admin Diazepam 5 mg 11/26/24 19:11 Diazepam 5mg Tablet PO 11/27/24 07:11 ONCE PRN Anxiety Fentanyl Citrate 50 mcg 11/26/24 19:11 Fentanyl 100mcg/2ml Vial IV 11/27/24 07:11 Q3MINP PRN Sedation Fentanyl Citrate 25 mcg 11/26/24 19:11 Fentanyl 100mcg/2ml Vial IV 11/27/24 07:11 Q3MINP PRN Sedation Flumazenil 0.2 mg 11/26/24 19:11 Flumazenil 0.1mg/Ml 5ml Vial IV 11/27/24 07:11 NEEDED PRN Sedation Heparin Sodium (Porcine) 5,000 unit 11/26/24 19:11 Heparin 1,000 Units/Ml 10ml Vial ([employer]sman) IV 11/26/24 23:11 NEEDED PRN Emergency [employer] Hydralazine HCl 20 mg 11/26/24 19:11 Hydralazine 20mg/Ml Vial IV 11/26/24 23:11 ONCE PRN sbp>160 Lactated Ringer's 1,000 mls @ 999 mls/hr 11/26/24 19:04 Lactated Ringer's 1000 Ml Bag IV 11/26/24 20:04 .Q1H1M ONE Adenosine 180 mg/ Sodium 90 mls @ 306.175 mls/hr 11/26/24 19:11 Chloride IV 11/26/24 23:11 ONCE PRN fractional flow reserve 180 MCG/KG/MIN Adenosine 90 mg/ Sodium 90 mls @ 612.349 mls/hr 11/26/24 19:11 Chloride IV 11/26/24 23:11 ONCE PRN fractional flow reserve 180 MCG/KG/MIN Sodium Chloride 1,000 mls @ 25 mls/hr 11/26/24 19:15 11/26/24 19:27 Sod Chloride 0.9% 500ml Bag IV 11/27/24 19:11 25 mls/hr .Q25H ABEL Administration Labetalol HCl 20 mg 11/26/24 19:11 Labetalol 20mg/4ml Syringe IV 11/26/24 23:11 ONCE PRN sbp>160 Lorazepam 1 mg 11/26/24 19:11 Lorazepam 2mg/Ml Vial IV 11/27/24 07:11 ONCE PRN Anxiety Midazolam HCl 1 mg 11/26/24 19:11 Midazolam 2mg/2ml Vial IV 11/27/24 07:11 Q3MINP PRN Sedation Midazolam HCl 1 mg 11/26/24 19:11 Midazolam Hcl 1mg/Ml 5ml Vial IV 11/27/24 07:11 Q3MINP PRN Sedation Naloxone HCl 0.4 mg 11/26/24 19:11 Naloxone 0.4mg/Ml Vial IV 11/27/24 07:11 Q5MINP PRN Decreased Respirations Nitroglycerin 800 mcg 11/26/24 19:11 Nitroglycerin 800mcg/8ml Syr ([employer]sman) IA 11/26/24 23:11 NEEDED PRN Emergency [employer] Promethazine HCl 25 mg 11/26/24 19:11 Promethazine Hcl 25mg/Ml 1ml Vial IV 11/27/24 07:11 NEEDED PRN Nausea And Vomiting Protamine Sulfate 50 mg 11/26/24 19:11 Protamine Sulfate 50mg/5ml Vial ([employer]sman) IV 11/26/24 23:11 ONCE PRN act>200 Sodium Chloride 10 ml 11/26/24 19:11 Sodium Chloride 0.9% 10ml Vial IV 12/26/24 19:10 NEEDED PRN to Dilute Lorazepam inj Discontinued Medications Generic Name Dose Route Start Last Admin Trade Name Kj PRN Reason Stop Dose Admin Diphenhydramine HCl 50 mg 11/26/24 19:11 11/26/24 19:28 Diphenhydramine 50mg/Ml Vial IV 11/26/24 19:12 50 mg ONCE ONE Administration Heparin Sodium (Porcine) 5,000 unit 11/26/24 19:02 11/26/24 19:05 Heparin Sodium 5,000 Unit/Ml Vial IV 11/26/24 19:03 5,000 unit ONCE ONE Administration Heparin Sodium/Sodium Chloride 3,000 unit 11/26/24 19:11 11/26/24 19:27 Heparin 1,000 Units/500ml Ns ([employer]sman) IV 11/26/24 19:12 3,000 unit ONCE ONE Administration Lidocaine HCl 10 ml 11/26/24 19:11 11/26/24 19:27 Lidocaine 1% 10ml Mdv IJ 11/26/24 19:12 10 ml ONCE ONE Administration Lidocaine HCl 10 ml 11/26/24 19:11 Lidocaine 1% 5ml Pf Vial IJ 11/26/24 19:12 ONCE ONE Morphine Sulfate 4 mg 11/26/24 19:11 Morphine 4mg/Ml Syringe IV 11/26/24 19:12 ONCE ONE Ondansetron HCl 4 mg 11/26/24 19:11 11/26/24 19:28 Ondansetron 4mg/2ml Vial IV 11/27/24 07:11 4 mg NEEDED PRN Administration Nausea Sodium Chloride 25 ml 11/26/24 19:11 Sodium Chloride 0.9% 25ml Bag IV 11/26/24 19:12 ONCE ONE Verapamil HCl 2.5 mg 11/26/24 19:11 11/26/24 19:28 Verapamil 2.5mg/Ml 2ml Vial IV 11/26/24 19:12 Not Given ONCE ONE ORDERS Category Date Time Status Activated Partial Thrombo Time Stat Lab 11/26/24 18:58 Completed CK [Creatine Kinase] Stat Lab 11/26/24 18:58 Completed Complete Blood Count Auto Diff Stat Lab 11/26/24 18:58 Completed Comprehensive Metabolic Panel Stat Lab 11/26/24 18:58 Completed HIV Combo Stat Lab 11/26/24 18:58 Received Hepatitis C Ab Qual. W/ RFX Stat Lab 11/26/24 18:58 Received MAG [Magnesium] Stat Lab 11/26/24 18:58 Completed PHOS [Phosphorous] Stat Lab 11/26/24 18:58 Completed Prothrombin Time INR Stat Lab 11/26/24 18:58 Completed Trop I [Troponin I] Stat Lab 11/26/24 18:58 Completed Troponin I Q3H Lab 11/26/24 22:15 Ordered Troponin I Q3H Lab 11/27/24 01:15 Ordered VBG [Venous Blood Gas] Stat RT 11/26/24 18:58 Completed ECG Data Tracing #1: Attestation: I reviewed this ECG and interpreted as documented below: ECG Narrative: Normal sinus rhythm with sinus arrhythmia with a ventricular of [address]/T wave changes in leads V3, V4, V5 and somewhat in V6. Per Dr. Hays, continue with plan to activate the [employer]sman ECG initial impression date: 11/26/24 ECG initial impression time: 18:58 MDM Narrative Medical Decision Narrative: In summary, this patient is a 64-year-old male presenting to the Emergency Department for evaluation of chest pain. He presents as a STEMI alert per EMS. He has been overexerting himself working out in the heat and has not been compliant with his medications. Differential diagnoses considered include but are not limited to STEMI, ACS dehydration, HILARIA, rhabdomyolysis. Ruling out the most morbid conditions drove assessment. It should be noted patient's history includes CAD status post CABG which likely is not at goal therapy given that he is not taking medications. This complicates all aspects of care by increasing patient's risk for morbidity. Patient arrives as a STEMI alert per EMS. On arrival, he is continues to complain of chest pain going down his left arm. EKG obtained demonstrates some ST changes in anterolateral leads. Vitals are stable on cardiac telemetry upon arrival. Given this, I had an interactive discussion with Dr. Hays who recommended loading with 5000 units of heparin and proceeding with plan to go straight to the [employer]oc[employer] Draftsman. Labs were pending at time of transport to the [employer]. He was transported in stable condition.
[2024-11-26] MEDS: MIDAZOLAM HCL 1MG/ML 5ML VIAL 1 MG IV (19:46)
[2024-11-26] MEDS: FENTANYL 100MCG/2ML VIAL 50 MCG IV (19:47)
[2024-11-26] MEDS: PROPOFOL 10MG/ML 20ML VIAL 80 MG IV (19:50)
[2024-11-26] MEDS: LORazepam 2MG/ML VIAL 2 MG IV ×2 (19:57→20:37)
[2024-11-26 20:12] LABS: HIV Combo NEGATIVE (Negative)
[2024-11-26] MEDS: 0.9 % SODIUM CHLORIDE 1000ML 1,000 ML 999 ML IV ×2 (20:12→20:15)
[2024-11-26 20:20] LABS: Hepatitis C Ab Qual. W/ RFX NEGATIVE (Negative)
--- NOTE | 2024-11-26 20:24 | PC.NURSE ---
Patient arrived to floor via stretcher from the Super[facility] at 20:21.
[2024-11-26] MEDS: IOPAMIDOL-370 (76%);100ML BOTTLE 50 ML IV (20:26)
--- NOTE | 2024-11-26 22:47 | P.HP_ITS ---
<Statement entered by Tremaine Rojas MD - 11/27/24 21:28> Rounded on patient after nurse practitioner. Personally examined and interviewed patient. Agree with exam findings and care plan as documented. History of Present Illness *Admission Date: 11/26/24 *Reason for visit:: Chest pain *History of present illness: Mr. Soler is a 64-year-old male presents to the ER with complaints of chest pain. Patient has a past medical history of CAD s/p CABG. Patient unable to provide history due to sedation following cath procedure. History obtained from ER note and hospital staff. Patient presented with chest pain that radiated to left arm. 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 Pain continued therefore patient called EMS. EMS noted significant ST changes on EKG and sent to Dr. Hays, cardiology who activated STEMI alert. Patient is supposed to be on blood thinners but is unsure of which one. Reported that he has not been taking his medications as prescribed. CABG was in February at [place]. STEMI alert activated and patient taken to [facility]. [facility] Disclaimer: The information contained in this section may have been updated after the patient was seen, as this information can be updated by other users. Social History (Updated 11/26/24 @ 19:43 by Indigo Nichols DO) Smoking Status: Current every day smoker alcohol intake: never current occupational status: employed Travel in the last 8 weeks?: None Have you lived/traveled outside US in past 30 days?: No Contact w/someone who lives/traveled outside US past 30 days?: No Exposure to someone with infectious disease in past 14 days?: No Do you have a fever (greater than 100.4 F or 38 C)?: No Have you tested positive for COVID-19?: No Exposed to someone with COVID-19 in past 14 days?: No Do you have a sore throat?: No Do you have a cough?: No Do you have any weakness?: No Do you have any diarrhea?: No Are you experiencing any unusual bleeding?: No Do you have any muscle aches/pain?: No Do you have any abdominal pain?: No Are you experiencing loss of taste or smell?: No Review of Systems Review of Systems Review of systems:: unable to obtain (patient is sedated after heart cath procedure) Meds Home Medications and Allergies New Prescriptions to Start Prescriptions: Allergies Allergy/AdvReac Type Severity Reaction Status Date / Time No Known Allergies Allergy Verified 11/26/24 19:10 Exam Data for Last 24 hours Vital signs and Labs for Last 24 Hours: Temp Pulse Resp BP Pulse Ox O2 Del Method O2 Flow Rate 98.9 F 80 16 127/83 100 Nasal Cannula 3 11/26/24 19:11 11/26/24 20:25 11/26/24 19:11 11/26/24 19:11 11/26/24 20:30 11/26/24 21:00 11/26/24 21:00 Laboratory Results - last 24 hr 11/26/24 18:58: WBC 11.7 H, RBC 5.19, Hgb 15.5, Hct 45.4, MCV 87.5, MCH 29.9, MCHC 34.1, RDW 13.1, Plt Count 288, MPV 10.0, Neut % (Auto) 70.8, Lymph % (Auto) 18.5, [place] % (Auto) 8.4, Eos % (Auto) 1.4, Baso % (Auto) 0.6, Neut # (Auto) 8.3 H, Lymph # (Auto) 2.2, [place] # (Auto) 1.0, Eos # (Auto) 0.2, Baso # (Auto) 0.1, PT 10.9, INR 0.98, APTT 25.1, VBG pH 7.31, VBG pCO2 51.2 H, VBG pO2 24.6 L, VBG HCO3 24.9, VBG Total CO2 26.5, VBG O2 Saturation 40.7 L, VBG Base Excess -1.4, VBG Lactic Acid 1.4, Sodium 130 L, Potassium 4.4, Chloride 89 L, Carbon Dioxide 26, Anion Gap 19.4 H, BUN 36 H, Creatinine 2.20 H, Estimated Creat Clear 27, Estimated GFR 30 L, Est GFR ( Amer) 37 L, Glucose 110 H, Calcium 9.9, Phosphorus 6.1 H, Magnesium 2.3, Total Bilirubin 0.7, AST 51, ALT 21, Alkaline Phosphatase 97, Total Creatine Kinase 630 H*, Troponin I < 0.01, Total Protein 9.6 H, Albumin 5.4 H, Globulin 4.2 H, Albumin/Globulin Ratio 1.3, HCV Ab CAROLYNE w/Rflx PCR Qn Negative, HIV Ag/Ab Combo Qual Negative I & O for Last 24 hours: Intake & Output 11/23/24 11/24/24 11/25/24 11/26/24 23:59 23:59 23:59 23:59 Weight 56.699 kg *Routine HEENT Exam Head: Present normocephalic and atraumatic Eye: Present PERRL ENT: Present mucous membranes moist *Routine Neck Exam Neck: Present supple *Routine Respiratory Exam Respiratory: Present CTA bilaterally and symmetric chest movement; Absent accessory muscle use or respiratory distress *Routine Cardiovascular Exam Cardiovascular: Present RRR, Normal S1 and Normal S2 *Routine Abdominal Exam Abdominal: Present soft and other (decreased bowel sounds); Absent tenderness or distended *Routine Rectal Exam Rectal:: deferred *Routine Genitalia Exam Genitalia:: deferred *Routine Extremities Exam Extremities: Present pulses intact; Absent edema *Routine Skin Exam Skin: Present intact, dry and warm *Routine Neurological Exam Neurological: Absent alert Comments: sedated Assessment and Plan *Assessment and plan (1) Rhabdomyolysis: Status: Acute Qualifiers: Encounter type: initial encounter Category: Medical Code(s): M62.82 - Rhabdomyolysis Plan: Normal saline 200 mL/HR CK on admission 630 Trend CK (2) Chest pain: Status: Acute Category: Medical Code(s): R07.9 - Chest pain, unspecified Plan: S/p cardiac cath:Severe vascular ectasia involving the left main artery and proximal. LAD as described above. Minimal atherosclerotic plaque. Patent saphenous vein graft to the first diagonal artery which backfills the LAD and has competitive flow with the venetie ira circulation. Normal ejection fraction. Low LVEDP Analgesics as needed Femoral approach, monitor for bleeding Patient must lie flat for 6 hours (3) Acute kidney injury: Status: Acute Category: Medical Code(s): N17.9 - Acute kidney failure, unspecified Plan: IV fluids Monitor BMP Avoid nephrotoxic agents (4) Hypoxia: Status: Acute Category: Medical Code(s): R09.02 - Hypoxemia Plan: Continue supplemental oxygen as needed and wean as tolerated (5) Dehydration: Status: Acute Category: Medical Code(s): E86.0 - Dehydration Plan: IV fluids Encourage p.o. fluid intake as tolerated Monitor labs
[2024-11-26 23:23] LABS: Troponin I < 0.01 ng/ml (0.00-0.034)
[2024-11-26] MEDS: 0.9 % SODIUM CHLORIDE 1000ML 1,000 ML 200 ML IV (23:43)
[2024-11-27] VITALS (8 sets, daily range): BP systolic 99–126; BP diastolic 66–81; PULSE 60–74; RESP 12–20; TEMP 36.4–36.9; O2SAT 98–100; BMI 16.9
[2024-11-27 02:20] LABS: Troponin I < 0.01 ng/ml (0.00-0.034)
[2024-11-27] MEDS: 0.9 % SODIUM CHLORIDE 1000ML 1,000 ML 200 ML IV (04:40)
--- NOTE | 2024-11-27 06:04 | PC.NURSE ---
Pt is alert and oriented x4 and currently tolerating RA well at this time. Pt arrived from the manager laboratory on 3L of O2, this nurse was able to wean pt O2 to RA, pt is now sating @ 100%. Pt has rested well this shift and denies pain. Pt remained supine until 3am, Pt cath site and dressing are clean and dry. no signs of bleeding noted. Pt did c/o of hiccups and request medication for it, new orders (see MAR)
[2024-11-27 06:07] LABS: Basophils # 0.1 K/mm3 (0-0.2); Basophils % 0.8 % (0.1-2.0); Eosinophils # 0.3 Kmm3 (0.0-0.4); Hematocrit 38.5 % (42.0-52.0); Immature Granulocytes # 0.03 10^3uL; Immature Granulocytes % 0.3 %; Lymphocytes % 29.1 % (10-50); Mean Corpuscular HGB Conc 33.5 g/dL (31.8-35.4); Mean Corpuscular Hemoglobin 29.7 pg (27.0-31.2); Mean Corpuscular Volume 88.5 fl (80-94); Mean Platelet Volume 10.1 fl (7.4-10.4); Monocytes # 1.2 K/mm3 (0.1-1.0); Monocytes % 11.9 % (1.7-9.3); Neutrophils # 5.8 K/mm3 (1.8-7.8); Neutrophils % 54.9 % (37.0-80.0); Nucleated Red Blood Cells # 0 10^3/uL; Nucleated Red Blood Cells % 0 %; Platelet Count 239 K/mm3 (142-424); Red Blood Count 4.35 M/mm3 (4.60-6.20); Red Cell Distribution Width-SD 42.5 fL; White Blood Count 10.5 K/mm3 (4.8-10.8)
[2024-11-27] MEDS: METOCLOPRAMIDE 10MG TABLET 10 MG PO (06:13)
[2024-11-27 06:14] LABS: Chloride 104 mmol/L (98-107); Sodium 134 mmol/L (136-145)
[2024-11-27 06:17] LABS: Blood Urea Nitrogen 25 mg/dl (9-20); Carbon Dioxide 21 mmol/L (22.0-30.0); Creatine Kinase 491 U/L (55-170); Creatinine Clearance Estimated 45 mL/min (50-200); Estimated Glomerular Filt Rate 56 ml/min (>60); GFR (African American) 67 ML/MIN (>60)
[2024-11-27 06:18] LABS: Calcium 8.1 mg/dl (8.4-10.2); Glucose 89 mg/dl (74-100); Magnesium 2.2 mg/dl (1.6-2.3)
[2024-11-27 07:36] LABS: Hemoglobin 12.9 g/dL (14.1-18.0)
--- NOTE | 2024-11-27 07:36 | EXP.DC.SUM ---
General Admission date:: 11/26/24 Discharge date: 11/27/24 HPI HPI HPI: Mr. Soler is a 64-year-old male presents to the ER with complaints of chest pain. Patient has a past medical history of CAD s/p CABG. Patient unable to provide history due to sedation following cath procedure. History obtained from ER note and hospital staff. Patient presented with chest pain that radiated to left arm. 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 Pain continued therefore patient called EMS. EMS noted significant ST changes on EKG and sent to Dr. Hays, cardiology who activated STEMI alert. Patient is supposed to be on blood thinners but is unsure of which one. Reported that he has not been taking his medications as prescribed. CABG was in February at [place]. STEMI alert activated and patient taken to [facility]. Exam Data for Last 24 hours Vital signs and Labs for Last 24 Hours: Temp Pulse Resp BP Pulse Ox O2 Del Method O2 Flow Rate 97.5 F L 64 14 99/68 L 100 Room Air 1 11/27/24 04:00 11/27/24 04:00 11/27/24 04:00 11/27/24 04:00 11/27/24 04:00 11/27/24 05:00 11/27/24 01:45 Laboratory Results - last 24 hr 11/26/24 18:58: WBC 11.7 H, RBC 5.19, Hgb 15.5, Hct 45.4, MCV 87.5, MCH 29.9, MCHC 34.1, RDW 13.1, Plt Count 288, MPV 10.0, Neut % (Auto) 70.8, Lymph % (Auto) 18.5, [place] % (Auto) 8.4, Eos % (Auto) 1.4, Baso % (Auto) 0.6, Neut # (Auto) 8.3 H, Lymph # (Auto) 2.2, [place] # (Auto) 1.0, Eos # (Auto) 0.2, Baso # (Auto) 0.1, PT 10.9, INR 0.98, APTT 25.1, VBG pH 7.31, VBG pCO2 51.2 H, VBG pO2 24.6 L, VBG HCO3 24.9, VBG Total CO2 26.5, VBG O2 Saturation 40.7 L, VBG Base Excess -1.4, VBG Lactic Acid 1.4, Sodium 130 L, Potassium 4.4, Chloride 89 L, Carbon Dioxide 26, Anion Gap 19.4 H, BUN 36 H, Creatinine 2.20 H, Estimated Creat Clear 27, Estimated GFR 30 L, Est GFR ( Amer) 37 L, Glucose 110 H, Calcium 9.9, Phosphorus 6.1 H, Magnesium 2.3, Total Bilirubin 0.7, AST 51, ALT 21, Alkaline Phosphatase 97, Total Creatine Kinase 630 H*, Troponin I < 0.01, Total Protein 9.6 H, Albumin 5.4 H, Globulin 4.2 H, Albumin/Globulin Ratio 1.3, HCV Ab CAROLYNE w/Rflx PCR Qn Negative, HIV Ag/Ab Combo Qual Negative 11/26/24 22:44: Troponin I < 0.01 11/27/24 01:37: Troponin I < 0.01 11/27/24 05:53: WBC 10.5, RBC 4.35 L, Hct 38.5 L, MCV 88.5, MCH 29.7, MCHC 33.5, RDW 13.0, Plt Count 239, MPV 10.1, Neut % (Auto) 54.9, Lymph % (Auto) 29.1, [place] % (Auto) 11.9 H, Eos % (Auto) 3.0, Baso % (Auto) 0.8, Neut # (Auto) 5.8, Lymph # (Auto) 3.0, [place] # (Auto) 1.2 H, Eos # (Auto) 0.3, Baso # (Auto) 0.1, Sodium 134 L, Potassium 4.0, Chloride 104, Carbon Dioxide 21 L, Anion Gap 13.0, BUN 25 H D, Creatinine 1.30 H D, Estimated Creat Clear 45, Estimated GFR 56 L, Est GFR ( Amer) 67 D, Glucose 89, Calcium 8.1 L, Phosphorus 3.0 D, Magnesium 2.2, Total Creatine Kinase 491 H I & O for Last 24 hours: Intake & Output 11/24/24 11/25/24 11/26/24 11/27/24 23:59 23:59 23:59 23:59 Intake Total 500 / 500 Output Total 650 / 650 Balance -150 / -150 Weight 56.699 kg 54.885 kg Results Data Completed and Pending Labs on day of discharge: Labs from last 24 hours 11/27/24 11/27/24 11/26/24 05:53 01:37 22:44 WBC 10.5 RBC 4.35 L Hgb Hct 38.5 L MCV 88.5 MCH 29.7 MCHC 33.5 RDW 13.0 Plt Count 239 MPV 10.1 Neut % (Auto) 54.9 Lymph % (Auto) 29.1 [place] % (Auto) 11.9 H Eos % (Auto) 3.0 Baso % (Auto) 0.8 Neut # (Auto) 5.8 Lymph # (Auto) 3.0 [place] # (Auto) 1.2 H Eos # (Auto) 0.3 Baso # (Auto) 0.1 PT INR APTT VBG pH VBG pCO2 VBG pO2 VBG HCO3 VBG Total CO2 VBG O2 Saturation VBG Base Excess VBG Lactic Acid Sodium 134 L Potassium 4.0 Chloride 104 Carbon Dioxide 21 L Anion Gap 13.0 BUN 25 H D Creatinine 1.30 H D Estimated Creat Clear 45 Estimated GFR 56 L Est GFR ( Amer) 67 D Glucose 89 Calcium 8.1 L Phosphorus 3.0 D Magnesium 2.2 Total Bilirubin AST ALT Alkaline Phosphatase Total Creatine Kinase 491 H Troponin I < 0.01 < 0.01 Total Protein Albumin Globulin Albumin/Globulin Ratio HCV Ab CAROLYNE w/Rflx PCR Qn HIV Ag/Ab Combo Qual 11/26/24 18:58 WBC 11.7 H RBC 5.19 Hgb 15.5 Hct 45.4 MCV 87.5 MCH 29.9 MCHC 34.1 RDW 13.1 Plt Count 288 MPV 10.0 Neut % (Auto) 70.8 Lymph % (Auto) 18.5 [place] % (Auto) 8.4 Eos % (Auto) 1.4 Baso % (Auto) 0.6 Neut # (Auto) 8.3 H Lymph # (Auto) 2.2 [place] # (Auto) 1.0 Eos # (Auto) 0.2 Baso # (Auto) 0.1 PT 10.9 INR 0.98 APTT 25.1 VBG pH 7.31 VBG pCO2 51.2 H VBG pO2 24.6 L VBG HCO3 24.9 VBG Total CO2 26.5 VBG O2 Saturation 40.7 L VBG Base Excess -1.4 VBG Lactic Acid 1.4 Sodium 130 L Potassium 4.4 Chloride 89 L Carbon Dioxide 26 Anion Gap 19.4 H BUN 36 H Creatinine 2.20 H Estimated Creat Clear 27 Estimated GFR 30 L Est GFR ( Amer) 37 L Glucose 110 H Calcium 9.9 Phosphorus 6.1 H Magnesium 2.3 Total Bilirubin 0.7 AST 51 ALT 21 Alkaline Phosphatase 97 Total Creatine Kinase 630 H* Troponin I < 0.01 Total Protein 9.6 H Albumin 5.4 H Globulin 4.2 H Albumin/Globulin Ratio 1.3 HCV Ab CAROLYNE w/Rflx PCR Qn Negative HIV Ag/Ab Combo Qual Negative DS: Diagnosis Discharge Diagnosis (1) Rhabdomyolysis: Status: Acute Code(s): M62.82 - Rhabdomyolysis Qualifiers: Encounter type: initial encounter (2) Chest pain: Status: Acute Code(s): R07.9 - Chest pain, unspecified (3) Acute kidney injury: Status: Acute Code(s): N17.9 - Acute kidney failure, unspecified (4) Hypoxia: Status: Acute Code(s): R09.02 - Hypoxemia (5) Dehydration: Status: Acute Code(s): E86.0 - Dehydration Meds Home Medications and Allergies Home Medications ?Medication ?Instructions ?Recorded ?Confirmed ?Type No Known Home Medications 11/27/24 11/27/24 History New Prescriptions to Start Prescriptions: Allergies Allergy/AdvReac Type Severity Reaction Status Date / Time No Known Allergies Allergy Verified 11/26/24 19:10 Discharge Plan Disposition Patient Disposition: Home, Self-Care Condition: Fair Follow up Plan Follow up with: Chuck Dewitt MD [Primary Care Provider, Internal Medicine] - See instructions Julio C Hays MD [Staff Physician, Cardiology] - Enter time for follow up Prescriptions/Medication Reconciliation: No Action No Known Home Medications Patient Discharge Instructions Print Language: Egyptian Providers Primary Care Provider: Chuck Dewitt Admit Provider: Tremaine Rojas Attending Provider: Tremaine Rojas
--- NOTE | 2024-11-27 08:44 | CA_ITS ---
APPROVED REPORT EXAM: Comprehensive 2D, Doppler, and color-flow Echocardiogram Administrative Supervisor: Gilma Gibbs RDCS Ht: 5 ft 11 in Wt: 121lbs BSA: 1.70 BP: 127/83 mmHg Indications: CAD STEMI M-Mode Dimensions RVDd 1.34 cm (0.9-2.6) LA Diam 3.01 cm (1.9-4.0) LVDd 5.15 cm (3.5-5.7) LVDs 3.74 cm (3.5-5.7) IVSd 0.88 cm (0.6-1.1) PWd 0.70 cm (0.6-1.1) EF (Teich) 52.90% FS 27.40% EDV (Teich) 126.60 mL TAPSE 1.47 (<1.7) ESV (Teich) 59.60 mL LV Diastology E Decel Time 287 (160-240 msec) E/A Ratio 0.9 Mitral Valve MV E Max Adams. 52.0 (40-130 cm/s) MV A Velocity 60.0 (40-130 cm/s) E/A Ratio 0.86 MV PHT 84.0 ms Tricuspid Valve TR P. Velocity 194.00 cm/s RAP Estimate 10.00 mmHg RVSP 25.10 mmHg Left Ventricle The left ventricle is normal size. The left ventricular systolic function is normal. The left ventricular ejection fraction is within the normal range. There is increased LV wall thickness. There is normal LV segmental wall motion. The left ventricular diastolic function is normal. LVEF is 60%. Right Ventricle The right ventricle is normal size. The right ventricular systolic function is normal. Atria The left atrium size is normal. The right atrium size is normal. There is no Doppler evidence of interatrial shunt. Aortic Valve Aortic valve is mildly thickened. There is no aortic valvular stenosis. No aortic regurgitation is present. Mitral Valve The mitral valve is normal in structure. No evidence of mitral valve stenosis. There is no mitral valve regurgitation noted. Tricuspid Valve Tricuspid valve is grossly normal in structure and function. Mild tricuspid regurgitation. RVSP 20-25 mmHg. Pulmonic Valve The pulmonary valve is normal in structure. Trace pulmonic regurgitation. Great Vessels The aortic root is normal in size. The aortic root is normal in size. IVC is normal in size and collapses >50% with inspiration. Pericardium There is no pericardial effusion. Other Information Study Quality: Adequate Conclusion Normal biventricular systolic function. Mild TR. Electronically signed by : Teresita Schmidt MD 11/27/2024 22:52:09
--- NOTE | 2024-11-27 08:45 | P.CONCA_ITS ---
History of Present Illness History of Present Illness Consult date: 11/27/24 Requesting physician: Tremaine Rojas Consult reason: chest pain Chief complaint: STEMI Additional Medical History:: 1. CAD with history of CABG in February/2024 at [facility] in [place], [place]. A. STEMI alert, 11/26/2024, in setting of chest pain with [address] segment elevation in leads V3 through V5 on EKG B. Left heart catheterization, 11/26/2024, severe vascular ectasia involving the left main artery and proximal LAD. Minimal atherosclerotic plaque. Patent SVG to first diagonal which backfills the LAD with competitive flow from the chitim[place] circulation. Normal EF. LVEDP low at 5 mmHg. Bilateral single normal renal arteries. 2. Hyperlipidemia A. Statin therapy 3. Chronic tobacco and marijuana use 4. Dehydration with mild rhabdomyolysis, 11/26/2024 History of present illness: 64-year-old white male with history of bypass surgery in February of last year presented to the emergency department by EMS for epigastric/chest cramping that began approximately 4 hours prior to admission. This progressed to include tightness in the left arm. Patient had been out in the heat all day working. EKG in the ambulance was transmitted to Dr. Hays with STEMI alert activated. Patient was taken to the cardiac [facility] with no acute stenosis noted. Noted to have significant vascular ectasia and competitive flow down the LAD from his ERICKSON graft and [place] artery. 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 This morning patient states he is feeling better and is anxious to go home. He has not been taking his medications over the last couple of months. I encouraged him to go back on his low-dose baby aspirin and statin therapy. [facility] Disclaimer: The information contained in this section may have been updated after the patient was seen, as this information can be updated by other users. Social History (Updated 11/26/24 @ 19:43 by Indigo Nichols DO) Smoking Status: Current every day smoker alcohol intake: never current occupational status: employed Travel in the last 8 weeks?: None Have you lived/traveled outside US in past 30 days?: No Contact w/someone who lives/traveled outside US past 30 days?: No Exposure to someone with infectious disease in past 14 days?: No Do you have a fever (greater than 100.4 F or 38 C)?: No Have you tested positive for COVID-19?: No Exposed to someone with COVID-19 in past 14 days?: No Do you have a sore throat?: No Do you have a cough?: No Do you have any weakness?: No Do you have any diarrhea?: No Are you experiencing any unusual bleeding?: No Do you have any muscle aches/pain?: No Do you have any abdominal pain?: No Are you experiencing loss of taste or smell?: No Review of Systems Review of Systems Review of systems:: pertinent systems reviewed and negative unless documented below *Cardiovascular Cardiovascular: Reports chest pain and Reports dyspnea on exertion *Respiratory Respiratory: Reports dyspnea on exertion *Gastrointestinal Gastrointestinal: Reports abdominal pain Exam Data for Last 24 hours Vital signs and Labs for Last 24 Hours: Temp Pulse Resp BP Pulse Ox O2 Del Method O2 Flow Rate 97.5 F L 64 14 99/68 L 100 Room Air 1 11/27/24 04:00 11/27/24 04:00 11/27/24 04:00 11/27/24 04:00 11/27/24 04:00 11/27/24 07:00 11/27/24 01:45 Laboratory Results - last 24 hr 11/26/24 18:58: WBC 11.7 H, RBC 5.19, Hgb 15.5, Hct 45.4, MCV 87.5, MCH 29.9, MCHC 34.1, RDW 13.1, Plt Count 288, MPV 10.0, Neut % (Auto) 70.8, Lymph % (Auto) 18.5, [place] % (Auto) 8.4, Eos % (Auto) 1.4, Baso % (Auto) 0.6, Neut # (Auto) 8.3 H, Lymph # (Auto) 2.2, [place] # (Auto) 1.0, Eos # (Auto) 0.2, Baso # (Auto) 0.1, PT 10.9, INR 0.98, APTT 25.1, VBG pH 7.31, VBG pCO2 51.2 H, VBG pO2 24.6 L, VBG HCO3 24.9, VBG Total CO2 26.5, VBG O2 Saturation 40.7 L, VBG Base Excess -1.4, VBG Lactic Acid 1.4, Sodium 130 L, Potassium 4.4, Chloride 89 L, Carbon Dioxide 26, Anion Gap 19.4 H, BUN 36 H, Creatinine 2.20 H, Estimated Creat Clear 27, Estimated GFR 30 L, Est GFR ( Amer) 37 L, Glucose 110 H, Calcium 9.9, Phosphorus 6.1 H, Magnesium 2.3, Total Bilirubin 0.7, AST 51, ALT 21, Alkaline Phosphatase 97, Total Creatine Kinase 630 H*, Troponin I < 0.01, Total Protein 9.6 H, Albumin 5.4 H, Globulin 4.2 H, Albumin/Globulin Ratio 1.3, HCV Ab CAROLYNE w/Rflx PCR Qn Negative, HIV Ag/Ab Combo Qual Negative 11/26/24 22:44: Troponin I < 0.01 11/27/24 01:37: Troponin I < 0.01 11/27/24 05:53: WBC 10.5, RBC 4.35 L, Hgb 12.9 L D, Hct 38.5 L, MCV 88.5, MCH 29.7, MCHC 33.5, RDW 13.0, Plt Count 239, MPV 10.1, Neut % (Auto) 54.9, Lymph % (Auto) 29.1, [place] % (Auto) 11.9 H, Eos % (Auto) 3.0, Baso % (Auto) 0.8, Neut # (Auto) 5.8, Lymph # (Auto) 3.0, [place] # (Auto) 1.2 H, Eos # (Auto) 0.3, Baso # (Auto) 0.1, Sodium 134 L, Potassium 4.0, Chloride 104, Carbon Dioxide 21 L, Anion Gap 13.0, BUN 25 H D, Creatinine 1.30 H D, Estimated Creat Clear 45, Estimated GFR 56 L, Est GFR ( Amer) 67 D, Glucose 89, Calcium 8.1 L, Phosphorus 3.0 D, Magnesium 2.2, Total Creatine Kinase 491 H I & O for Last 24 hours: Intake & Output 11/24/24 11/25/24 11/26/24 11/27/24 11:59 11:59 11:59 11:59 Intake Total 500 / 500 Output Total 650 / 650 Balance -150 / -150 Weight 121 lb Constitutional Constitutional: no acute distress *Routine Respiratory Exam Respiratory: Present decreased breath sounds and CTA bilaterally *Routine Cardiovascular Exam Cardiovascular: Present RRR; Absent murmur, gallop or rubs *Routine Extremities Exam Extremities: Absent edema Meds Home Medications and Allergies Home Medications ?Medication ?Instructions ?Recorded ?Confirmed ?Type No Known Home Medications 11/27/2411/02 History New Prescriptions to Start Prescriptions: Allergies Allergy/AdvReac Type Severity Reaction Status Date / Time No Known Allergies Allergy Verified 11/26/24 19:10 Assessment and Plan *Assessment and plan (1) ACS (acute coronary syndrome): Status: Acute Category: Medical Code(s): I24.9 - Acute ischemic heart disease, unspecified (2) Dehydration: Status: Acute Category: Medical Code(s): E86.0 - Dehydration (3) Acute kidney injury: Status: Acute Category: Medical Code(s): N17.9 - Acute kidney failure, unspecified (4) Rhabdomyolysis: Status: Acute Qualifiers: Rhabdomyolysis type: non-traumatic Qualified Code(s): M62.82 - Rhabdomyolysis Category: Medical Code(s): M62.82 - Rhabdomyolysis Plan 1. Chest discomfort with abnormal EKG consistent with ACS/STEMI -LHC showed patent bypass arteries with severe vascular ectasia and competitive flow from the [place] LAD and ERICKSON arteries -Troponins normal -Echo pending 2. Dehydration with HILARIA (creatinine 2.2) and rhabdomyolysis (CPK 630) due to work out in severe heat -Improved with hydration 3. Hyperlipidemia -Resume statin 4. Tobacco and marijuana use -Cessation recommended Right femoral access site looks good with no evidence of hematoma or aneurysmal formation. No abdominal discomfort. Clinically stable from a cardiac standpoint for discharge home. Home medication recommendations: Aspirin 81 mg daily Atorvastatin 40 mg daily Follow-up in our office in 1 to 2 weeks.
[2024-11-27 09:09] LABS: Chol/HDL Ratio 5.6 (1-3.5); Cholesterol 212 mg/dl (140-200); HDL Cholesterol 38 mg/dl (40-60); Triglycerides 83 mg/dl (30-150); VLDL Cholesterol 17 mg/dL (0-40)
[2024-11-27 09:19] LABS: Direct LDL Cholesterol 148.26 mg/dL (100-129)
--- NOTE | 2024-11-27 10:08 | P.DS_ITS ---
<Statement entered by Tremaine Rojas MD - 11/27/24 15:25> Rounded on patient after nurse practitioner. Personally examined and interviewed patient. Agree with exam findings and care plan as documented. General Admission date:: 11/26/24 Discharge date: 11/27/24 HPI HPI HPI: Mr. Soler is a 64-year-old male presents to the ER with complaints of chest pain. Patient has a past medical history of CAD s/p CABG. Patient unable to provide history due to sedation following cath procedure. History obtained from ER note and hospital staff. Patient presented with chest pain th at radiated to left arm. 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 Pain continued therefore patient called EMS. EMS noted significant ST changes on EKG and sent to Dr. Hays, cardiology who activated STEMI alert. Patient is supposed to be on blood thinners but is unsure of which one. Reported that he has not been taking his medications as prescribed. CABG was in February at [facility]. STEMI alert activated and patient taken to [facility]. Hospital Course Hospital Course Hospital Course: Mr. Soler is a 64-year-old male who was admitted from the [facility] after STEMI alert was called. Patient came to the emergency room after working out in the sun all day, began having chest pain, nausea, vomiting, dizziness. On EKG he was found to have a [address] segment elevation in leads V3 through V5. He was taken directly to the [facility] where severe vascular ectasia involving the left main artery and proximal LAD were noted. He had minimal arthrosclerotic's plaque. He did not receive any stenting or intervention. Bilateral single normal renal artery, normal EF. Patient had CABG procedure February 2024 at [facility]. Patient admitted to the hospital overnight for cardiac monitoring, IV fluids. #CAD #History of CABG #STEMI #Status post left heart cath ?Serial troponins remain negative, formal echo read pending. Prelim EF 54%, [facility] report shows normal EF. Patient will follow-up with outpatient cardiology in 1 to 2 weeks. ?Patient doing well this morning, sitting up in bed no complaints of chest pain, nausea, vomiting, dizziness, abdominal pain. States he rested well overnight and was able to tolerate breakfast without problems. ?Patient was prescribed statin and aspirin after CABG procedure. Patient states he is not currently taking discussed the importance of medication adherence. ?Total cholesterol 212, LDL 148. Discussed importance of statin medication. #Dehydration #Rhabdomyolysis ?Initial CK 630, repeat today 491. BUN trending down 36 yesterday, 25 today. Creatinine 2.2 yesterday, 1.3 today. #Tobacco use disorder ?Discussed smoking cessation with the patient. He states that he was smoking 2 packs/day, has been down to 3 to 4 cigarettes/day for the past few months. Not interested in nicotine patches at this time. States he is working on quitting. Total time spent on discharge 34 minutes in counseling, documentation, chart review, and direct care with patient. Exam Data for Last 24 hours Vital signs and Labs for Last 24 Hours: Temp Pulse Resp BP Pulse Ox O2 Del Method O2 Flow Rate 97.5 F L 74 20 126/78 99 Room Air 1 11/27/24 08:00 11/27/24 08:00 11/27/24 08:00 11/27/24 08:00 11/27/24 08:00 11/27/24 09:00 11/27/24 01:45 Laboratory Results - last 24 hr 11/26/24 18:58: WBC 11.7 H, RBC 5.19, Hgb 15.5, Hct 45.4, MCV 87.5, MCH 29.9, MCHC 34.1, RDW 13.1, Plt Count 288, MPV 10.0, Neut % (Auto) 70.8, Lymph % (Auto) 18.5, Sumner % (Auto) 8.4, Eos % (Auto) 1.4, Baso % (Auto) 0.6, Neut # (Auto) 8.3 H, Lymph # (Auto) 2.2, Sumner # (Auto) 1.0, Eos # (Auto) 0.2, Baso # (Auto) 0.1, PT 10.9, INR 0.98, APTT 25.1, VBG pH 7.31, VBG pCO2 51.2 H, VBG pO2 24.6 L, VBG HCO3 24.9, VBG Total CO2 26.5, VBG O2 Saturation 40.7 L, VBG Base Excess -1.4, VBG Lactic Acid 1.4, Sodium 130 L, Potassium 4.4, Chloride 89 L, Carbon Dioxide 26, Anion Gap 19.4 H, BUN 36 H, Creatinine 2.20 H, Estimated Creat Clear 27, Estimated GFR 30 L, Est GFR ( Amer) 37 L, Glucose 110 H, Calcium 9.9, Phosphorus 6.1 H, Magnesium 2.3, Total Bilirubin 0.7, AST 51, ALT 21, Alkaline Phosphatase 97, Total Creatine Kinase 630 H*, Troponin I < 0.01, Total Protein 9.6 H, Albumin 5.4 H, Globulin 4.2 H, Albumin/Globulin Ratio 1.3, HCV Ab CAROLYNE w/Rflx PCR Qn Negative, HIV Ag/Ab Combo Qual Negative 11/26/24 22:44: Troponin I < 0.01 11/27/24 01:37: Troponin I < 0.01 11/27/24 05:53: WBC 10.5, RBC 4.35 L, Hgb 12.9 L D, Hct 38.5 L, MCV 88.5, MCH 29.7, MCHC 33.5, RDW 13.0, Plt Count 239, MPV 10.1, Neut % (Auto) 54.9, Lymph % (Auto) 29.1, Sumner % (Auto) 11.9 H, Eos % (Auto) 3.0, Baso % (Auto) 0.8, Neut # (Auto) 5.8, Lymph # (Auto) 3.0, Sumner # (Auto) 1.2 H, Eos # (Auto) 0.3, Baso # (Auto) 0.1, Sodium 134 L, Potassium 4.0, Chloride 104, Carbon Dioxide 21 L, Anion Gap 13.0, BUN 25 H D, Creatinine 1.30 H D, Estimated Creat Clear 45, Estimated GFR 56 L, Est GFR ( Amer) 67 D, Glucose 89, Calcium 8.1 L, Phosphorus 3.0 D, Magnesium 2.2, Total Creatine Kinase 491 H, Triglycerides 83, Cholesterol 212 H, LDL Cholesterol Direct 148.26 H, VLDL Cholesterol 17, HDL Cholesterol 38 L, Cholesterol/HDL Ratio 5.6 H I & O for Last 24 hours: Intake & Output 11/24/24 11/25/24 11/26/24 11/27/24 23:59 23:59 23:59 23:59 Intake Total 900 / 900 Output Total 1050 / 1050 Balance -150 / -150 Weight 56.699 kg 54.885 kg Constitutional Constitutional: no acute distress and thin *Routine HEENT Exam Head: Present normocephalic Eye: Present EOMI and PERRL ENT: Present mucous membranes moist *Routine Neck Exam Neck: Present supple and full ROM; Absent JVD *Routine Respiratory Exam Respiratory: Present CTA bilaterally, able to speak in complete sentences and symmetric chest movement *Routine Cardiovascular Exam Cardiovascular: Present RRR *Routine Abdominal Exam Abdominal: Present soft and normoactive bowel sounds; Absent tenderness or distended *Routine Extremities Exam Extremities: Present full ROM and normal capillary refill; Absent edema *Routine Skin Exam Skin: Present intact, dry and warm *Routine Neurological Exam Neurological: Present alert, oriented X3 and normal speech Results Data Completed and Pending Labs on day of discharge: Labs from last 24 hours 11/27/24 11/27/24 11/26/24 05:53 01:37 22:44 WBC 10.5 RBC 4.35 L Hgb 12.9 L D Hct 38.5 L MCV 88.5 MCH 29.7 MCHC 33.5 RDW 13.0 Plt Count 239 MPV 10.1 Neut % (Auto) 54.9 Lymph % (Auto) 29.1 Sumner % (Auto) 11.9 H Eos % (Auto) 3.0 Baso % (Auto) 0.8 Neut # (Auto) 5.8 Lymph # (Auto) 3.0 Sumner # (Auto) 1.2 H Eos # (Auto) 0.3 Baso # (Auto) 0.1 PT INR APTT VBG pH VBG pCO2 VBG pO2 VBG HCO3 VBG Total CO2 VBG O2 Saturation VBG Base Excess VBG Lactic Acid Sodium 134 L Potassium 4.0 Chloride 104 Carbon Dioxide 21 L Anion Gap 13.0 BUN 25 H D Creatinine 1.30 H D Estimated Creat Clear 45 Estimated GFR 56 L Est GFR ( Amer) 67 D Glucose 89 Calcium 8.1 L Phosphorus 3.0 D Magnesium 2.2 Total Bilirubin AST ALT Alkaline Phosphatase Total Creatine Kinase 491 H Troponin I < 0.01 < 0.01 Total Protein Albumin Globulin Albumin/Globulin Ratio Triglycerides 83 Cholesterol 212 H LDL Cholesterol Direct 148.26 H VLDL Cholesterol 17 HDL Cholesterol 38 L Cholesterol/HDL Ratio 5.6 H HCV Ab CAROLYNE w/Rflx PCR Qn HIV Ag/Ab Combo Qual 11/26/24 18:58 WBC 11.7 H RBC 5.19 Hgb 15.5 Hct 45.4 MCV 87.5 MCH 29.9 MCHC 34.1 RDW 13.1 Plt Count 288 MPV 10.0 Neut % (Auto) 70.8 Lymph % (Auto) 18.5 Sumner % (Auto) 8.4 Eos % (Auto) 1.4 Baso % (Auto) 0.6 Neut # (Auto) 8.3 H Lymph # (Auto) 2.2 Sumner # (Auto) 1.0 Eos # (Auto) 0.2 Baso # (Auto) 0.1 PT 10.9 INR 0.98 APTT 25.1 VBG pH 7.31 VBG pCO2 51.2 H VBG pO2 24.6 L VBG HCO3 24.9 VBG Total CO2 26.5 VBG O2 Saturation 40.7 L VBG Base Excess -1.4 VBG Lactic Acid 1.4 Sodium 130 L Potassium 4.4 Chloride 89 L Carbon Dioxide 26 Anion Gap 19.4 H BUN 36 H Creatinine 2.20 H Estimated Creat Clear 27 Estimated GFR 30 L Est GFR ( Amer) 37 L Glucose 110 H Calcium 9.9 Phosphorus 6.1 H Magnesium 2.3 Total Bilirubin 0.7 AST 51 ALT 21 Alkaline Phosphatase 97 Total Creatine Kinase 630 H* Troponin I < 0.01 Total Protein 9.6 H Albumin 5.4 H Globulin 4.2 H Albumin/Globulin Ratio 1.3 Triglycerides Cholesterol LDL Cholesterol Direct VLDL Cholesterol HDL Cholesterol Cholesterol/HDL Ratio HCV Ab CAROLYNE w/Rflx PCR Qn Negative HIV Ag/Ab Combo Qual Negative DS: Diagnosis Discharge Diagnosis (1) ACS (acute coronary syndrome): Status: Acute Code(s): I24.9 - Acute ischemic heart disease, unspecified (2) Dehydration: Status: Acute Code(s): E86.0 - Dehydration (3) Acute kidney injury: Status: Acute Code(s): N17.9 - Acute kidney failure, unspecified (4) Rhabdomyolysis: Status: Acute Code(s): M62.82 - Rhabdomyolysis Qualifiers: Rhabdomyolysis type: non-traumatic Qualified Code(s): M62.82 - Rhabdomyolysis (5) Tobacco use disorder: Status: Acute Code(s): F17.200 - Nicotine dependence, unspecified, uncomplicated Meds Home Medications and Allergies Home Medications ?Medication ?Instructions ?Recorded ?Confirmed ?Type aspirin 81 mg tablet,delayed 81 mg PO DAILY #30 tabs 0 11/27/24 Rx release atorvastatin 40 mg tablet (Lipitor) 40 mg PO HS #30 ta bs 11/27/24 Rx New Prescriptions to Start Prescriptions: aspirin Lisa Church atorvastatin [Lipitor] Lisa Church Allergies Allergy/AdvReac Type Severity Reaction Status Date / Time No Known Allergies Allergy Verified 11/26/24 19:10 Discharge Plan Disposition Patient Disposition: Home, Self-Care Condition: Fair Follow up Plan Follow up with: Chuck Dewitt MD [Primary Care Provider, Internal Medicine] - See instructions Julio C Hays MD [Staff Physician, Cardiology] - Enter time for follow up Prescriptions/Medication Reconciliation: New aspirin 81 mg tablet,delayed release (DR/EC) 81 mg PO DAILY Qty: 30 3RF atorvastatin [Lipitor] 40 mg tablet 40 mg PO HS Qty: 30 3RF Problem Reconciliation Problems Reviewed?: Yes Patient Discharge Instructions ACTIVITY: Continue current activity DIET: cardiac Patient Instructions: Acute Coronary Syndrome, Acute Kidney Injury, DI for Chest Pain, DI for Rhabdomyolysis Print Language: Syrian Providers Primary Care Provider: Chuck Dewitt Admit Provider: Tremaine Rojas Attending Provider: Tremaine Rojas
[2024-11-27] MEDS: ACETAMINOPHEN 325MG TAB 650 MG PO (12:10)
--- NOTE | 2024-12-01 10:35 | SW/DCPLANNER ---
Phoned patient x2. Patient's voice mail not sat up. Darian Miller
== END 2024-11-27 14:50 | disposition home or self-care (01) ==
LOC: ER 19:28 → SDC 19:29 → 2ND 19:50
PROVIDERS: Internal Medicine; Nurse Practitioner Family; Physician Assistant; Admitting Provider Internal Medicine Adolescent Medicine; Emergency Provider Emergency Medicine; PCP Family Medicine; Visit Provider Internal Medicine Adolescent Medicine
PROC: 4A023N7 Measurement of Cardiac Sampling and Pressure, Left Heart, Percutaneous Approach (ICD-10-PCS; CPT 93452; principal; 2024-11-26 19:00)
DX: I21.09 ST elevation (STEMI) myocardial infarction involving other coronary artery of anterior wall (principal); I24.9 Acute ischemic heart disease, unspecified; I25.10 Atherosclerotic heart disease of native coronary artery without angina pectoris; M62.82 Rhabdomyolysis; N17.9 Acute kidney failure, unspecified; I15.0 Renovascular hypertension; E86.0 Dehydration; R07.9 Chest pain, unspecified; I25.2 Old myocardial infarction; R94.31 Abnormal electrocardiogram [ECG] [EKG]; Z95.1 Presence of aortocoronary bypass graft; Z79.01 Long term (current) use of anticoagulants; Z79.82 Long term (current) use of aspirin; Z79.899 Other long term (current) drug therapy; F17.210 Nicotine dependence, cigarettes, uncomplicated
CPT/HCPCS: 36252; 36415; 80048; 80053; 80061; 82550; 82803; 83735; 84100; 84484; 85025; 85610; 85730; 86803; 87389; 93005; 93306; 93459; 99152; C1725; C1760; C1769; C1894; G0378; J1200; J1644; J2060; J2250; J2405; J2704; J3010; J7030; J7040; Q9967

== ENCOUNTER 2024-12-16 08:56 | Outpatient (CLI) | payer MEDICAID, SELFPAY ==
--- NOTE | 2024-12-16 09:00 | CA_ITS ---
FINAL REPORT CLINICAL HISTORY: HTN, CAD, Smoker FINDINGS: DOPPLER RENAL VESSELS FINDINGS: Intrarenal resistive indices on the right are 0.63-0.66, normal . Intrarenal resistive indices on the left are 0.61-0.65, normal . Right main renal artery systolic velocity: 183 cm/sec. Aortic-right renal artery flow velocity ratio: 2.96 cm COMMENT: Stenosis approaching 50%.. Left main renal artery systolic velocity: 179 cm/sec. Aortic-left renal artery flow velocity ratio: 2.89 COMMENT: Stenosis approaching 50%.. IMPRESSION: Stenosis approaching 50% bilaterally. Further investigation with CTA or MRA recommended. CTA or gadolinium-enhanced MR may be considered as a more sensitive exam. Alternatively noncontrast MRI may be considered for assessing main renal arteries for stenosis as a more sensitive exam if the patient has renal insufficiency. Reviewed, Interpreted and Dictated by Jessi Ledesma MD Transcribed by Clara Bermeo Authenticated and [facility]
--- OUTSIDE RECORDS SUMMARY | 2024-12-16 09:01 | XMS_ITS | Clinical Summary ---
Author Organization [employer] ([place], [place], [place], [place]) Address [address] [place] [address] Care Team Providers Care Central Office Supervisor Name Role Phone Robbin Jeffrey MD Unavailable [phone] Aurora Anderson MD Unavailable Indigo Jj NP Primary Care Provider [phone] Aurora Anderson MD Unavailable Allergies No known active allergies Medications bupropion HCl (WELLBUTRIN ORAL) Take by mouth Unsure of dosage . Active nicotine 21-14-7 mg/[address] onto the skin. Active Active Problems Problem Noted Date Diagnosed Date Coronary artery disease invo lving [place] coronary artery of [place] heart without angina pectoris 04/01/2024 Primary hypertension [...] the past 12 months, has t he [employer], [employer], oil, or water [employer] threatened to shut off services in your [...] your living situation today? I have a [facility] place to live 02/18/2024 Think about the [...] Do you speak a language other than Venezuelan at [facility]? No 02/18/2024 Do you want help with school or training? For example, starting or completing job training or getting a high school diploma, GED or equivalent. No 02/18/2024 Physical Activity Answer Date Recorded Number of minutes of exercise per week 360 02/18/2024 Self Management Answer Date Recorded Because of a physical, [...] you used [place] legal drugs? Never 02/18/2024 Mental Health Answer Date Recorded Calculation of above two rows 0 Sex and Gender Information Value Date Recorded [...] 60-74 years 1-dose series) 2020 COVID-19 VACCINE (1 - season) 2024 Influenza Vaccine (#1) 2025 Tobacco Cessation Counseling and Screening (12+) 03/2503/25/2024 Lipid Panel 02/19/2027 02/20/2024 Procedures Procedure Name Priority Date/Time Associated Diagnosis Comments LIPID PANEL Routine 02/20/2024 5:39 AM EDT from Last 3 Months or Most Recently Relevant to Health Maintenance Results * (ABNORMAL) Lipid panel (02/20/2024 5:39 AM EDT) Triglycerides 74 0 - 249 mg/dL 02/20/2024 6:44 AM T [facility] Cholesterol 200(H) 0 - 199 mg/dL 02/20/2024 6:44 AM [facility] Comment: 200 to 239 mg/dL = Moderate (borderline) >239 mg/dL = High HDL Cholesterol 48 >=40 mg/dL 02/20/2024 6:44 AM [facility] Comment: >=60 mg/dL = Desirable <40 mg/dL = Increased Risk All other components are listed individually or are calculations VLDL Cholesterol 14.8 5 - 40 mg/dL 02/20/2024 6:44 AM EDT [facility] Cholesterol/HDL ratio 4.2(H) 0.0 - 3.2 02/20/2024 6:44 AM [facility] LDl/HDL Ratio 3 0 - 4 02/20/2024 6:44 AM [facility] RISK COMP 4 02/20/2024 6:44 AM [facility] LDL Cholesterol, Calculated 137(H) 0 - 99 mg/dL 02/20/2024 6:44 AM [facility] Blood Venipuncture / Unknown 02/20/2024 5:39 AM EDT 02/20/2024 5:59 AM EDT Karen Whalen MEDICAL ASSISTANT CARDIOLOGY LAB BLOOD ORDERABLES Final Result [facility] [address] [place] [address], [facility] [phone] from Last 3 Months or Most Recently Relevant to Health Maintenance Insurance [employer] MEDICA[employer] Advance Directives For more information, please contact: [phone] * Full Code (Latest Code Status on File) Date Activated Date Inactivated Comments 02/21/2024 10:53 AM 02/24/2024 12:54 PM * Full Code Date Activated Date Inactivated Comments 02/18/2024 4:06 AM 02/21/2024 10:53 AM Care Teams Central Office Supervisor Relationship Specialty Start Date End Date Indigo Jj, SERA [address] [place] [address] PCP - General Nurse Practitioner 03/06/24 Robbin Jeffrey MD [address] [place], [place] [id number] Cardiothoracic Surgery 02/27/24 [place] [address] [place] [address] [address], [address] [place] [address] Interventional Cardiology 02/27/24 Aurora Anderson MD [address], [facility] [address] [place] [address] Interventional Cardiology 07/27/24 [facility] Primary Care 02/20/24 [facility] Cardiac Rehab 02/20/24
--- OUTSIDE RECORDS SUMMARY | 2024-12-16 09:01 | XMS_ITS | Referral Summary ---
Author Organization [employer] ([place], [place], [place], [place]) Address [address] [place] [address] Care Team Providers Care Mammalogist Name Role Phone Robbin Jeffrey MD Unavailable [phone] Aurora Anderson MD Unavailable Indigo Jj NP Primary Care Provider [phone] Aurora Anderson MD Unavailable Allergies No known active allergies Medications bupropion HCl (WELLBUTRIN ORAL) Take by mouth Unsure of dosage . Active nicotine 21-14-7 mg/[address] onto the skin. Active Active Problems Problem Noted Date Diagnosed Date Coronary artery disease invo lving [place] coronary artery of [place] heart without angina pectoris 04/01/2024 Primary hypertension [...] the past 12 months, has t he [employer], [employer], oil, or water [employer] threatened to shut off services in your [...] Do you speak a language other than Welsh at [facility]? No 02/18/2024 Do you want help with [...] of Assessment Author No 02/24/2024 10:13 AM CDT Clara Barboza * Are you blind or do you have serious difficulty seeing, even when wearing glasses? Answer Date of Assessment Author No 02/24/2024 10:13 AM CDT Clara Barboza * Do you have serious difficulty walking [...] 0 - 249 mg/dL 02/20/2024 6:44 AM [facility] Cholesterol 200(H) 0 - 199 mg/dL 02/20/2024 6:44 AM [facility] Comment: 200 to 239 mg/dL = Moderate (borderline) >239 mg/dL = High HDL Cholesterol 48 >=40 mg/dL 02/20/2024 6:44 AM [facility] Comment: >=60 mg/dL = Desirable <40 mg/dL = Increased Risk All other components are listed individually or are calculations VLDL Cholesterol 14.8 5 - 40 mg/dL 02/20/2024 6:44 AM [facility] Cholesterol/HDL ratio 4.2(H) 0.0 - 3.2 02/20/2024 6:44 AM [facility] LDl/HDL Ratio 3 0 - 4 02/20/2024 6:44 AM [facility] RISK COMP 4 02/20/2024 6:44 AM [facility] LDL Cholesterol, Calculated 137(H) 0 - 99 mg/dL 02/20/2024 6:44 AM [facility] Blood Venipuncture / Unknown 02/20/2024 5:39 AM EDT 02/20/2024 5:59 AM EDT us Karen Whalen APRN LAB BLOOD ORDERABLES Final Result [facility] [address] [address] [phone] from Last 3 Months or Most Recently Relevant to Health Maintenance Insurance [employer] Advance Directives For more information, please contact: [phone] * Full Code (Latest Code Status on File) Date Activated Date Inactivated Comments 02/21/2024 10:53 AM 02/24/2024 12:54 PM * Full Code Date Activated Date Inactivated Comments 02/18/2024 4:06 AM 02/21/2024 10:53 AM Care Teams Mammalogist Relationship Specialty Start Date End Date Indigo Jj NP [address] [place] [address] PCP - General Nurse Practitioner 03/06/24 Robbin Jeffrey MD [address] [facility] [address] [place] [address] Cardiothoracic Surgery 02/27/24 Aurora Anderson MD [address] [facility], [facility] [address] [place] [address] Interventional Cardiology 02/27/24 Aurora Anderson MD [address] , [facility] [address] [place] [address] Interventional Cardiology 07/27/24 [facility] Primary Care 02/20/24 [facility] Cardiac Rehab 02/20/24
--- OUTSIDE RECORDS SUMMARY | 2024-12-16 09:01 | XMS_ITS | Encounter Summary ---
Author Organization [employer] ([place], [place], [place], [place]) Address [address] [place] [address] Care Team Providers Care Transport Conductor Name Role Phone Robbin Jeffery MD Unavailable [phone] Aurora Anderson MD Unavailable Indigo Jj NP Primary Care Provider [phone] Aurora Anderson MD Unavailable Reason for Referral * CAT Scan (Routine) - Closed Specialty Diagnoses / Procedures Referred By Clari t Referred To Contact Radiology Diagnoses New daily persistent headache (ndph) Procedures CT brain without IV contrast Indigo Jj NP [address] [place] [address] Phone: tel: fax: Referral ID Status Reason Start Date Expiration Date Visits Re quested Visits Authorized [id number] Closed 04/02/2024 05/31/2024 1 1 Encounter Details Date Type Department Care Team (Late st Contact Info) Description 04/02/[address] [facility] Central Scheduling [address] [place] [address] Indigo Jj NP [address] [place] [address] New daily persistent headache (ndph) (Primary Dx) [...] your living situation today? I have a [facility] place to live 02/18/2024 Think about the [...] Do you speak a language other than Portuguese at [facility]? No 02/18/2024 Do you want help with [...] Author No 02/24/2024 10:13 AM Clara Voss Are you blind or do you have serious difficulty seeing, even when wearing glasses? Answer Date of Assessment Author No 02/24/2024 10:13 AM Clara Voss Do you have serious difficulty walking or climbing stairs? Answer Date of Assessment Author No 02/24/2024 10:13 AM Clara Voss Do you have serious difficulty dressing or bathing? Answer Date of Assessment Author No 02/24/2024 10:13 AM Clara Voss Because of a physical, mental, or emotional [...] Primary documented in this encounter Care Teams Transport Conductor Relationship Specialty Start Date End Date Indigo Jj, SERA [address] [place] [address] PCP - General Nurse Practitioner 03/06/24 Robbin Jeffrey MD [address] [place] [address] [address] [place] [address] Cardiothoracic Surgery 02/27/24 [place] [address] [place] [address], [place] [phone] Interventional Cardiology 02/27/24 Aurora Anderson MD [address], [address] [address] Interventional Cardiology 07/27/24 [facility] Primary Care 02/20/24 [facility] Cardiac Rehab 02/20/24 documented as of this encounter
--- NOTE | 2024-12-16 10:00 | CA_ITS ---
FINAL REPORT CLINICAL HISTORY: uneven blood pressures, CAD, Smoker FINDINGS: Spectral and Doppler waveform evaluations of the right upper extremity was performed. Spectral analysis was performed. Right upper extremity Velocities cm/sec: Subclavian artery: 69 Axillary: 45 Brachial proximal: 55 Brachial medial: 51 Brachial distal: 48 Radial proximal: 51 Radial medial: 47 Radial distal: 33 Ulnar proximal: 41 Ulnar medial: 64 Ulnar distal: 62 IMPRESSION: Normal exam without evidence of critical stenosis or occlusion. Reviewed, Interpreted and Dictated by Jessi Ledesma MD Transcribed by Clara Bermeo Authenticated and [facility]
--- NOTE | 2024-12-16 10:30 | US_ITS ---
FINAL REPORT CLINICAL HISTORY: I10 - Essential (primary) hypertension FINDINGS: RENAL ULTRASOUND Ultrasound images of the kidneys were obtained. The right kidney measures 10.6 cm in length. The left kidney measures 10.2 cm in length. The kidneys are normal in size. There is no hydronephrosis. A dominant central right renal cyst measures up to 2.7 cm. A left dominant lower pole renal cyst measures up to 4.7 cm. IMPRESSION: No significant atrophy or obstructive uropathy. Reviewed, Interpreted and Dictated by Jessi Ledesma MD Transcribed by Clara Bermeo Authenticated and [facility]
== END 2024-12-16 23:59 | disposition home or self-care (01) ==
LOC: RT 08:57
PROVIDERS: PCP Family Medicine; Visit Provider Physician Assistant
DX: I70.1 Atherosclerosis of renal artery (principal); I25.10 Atherosclerotic heart disease of native coronary artery without angina pectoris; I10 Essential (primary) hypertension; I99.8 Other disorder of circulatory system; F17.200 Nicotine dependence, unspecified, uncomplicated
CPT/HCPCS: 76770; 93931; 93976

== ENCOUNTER 2025-01-07 13:55 | Outpatient (RCR) | payer MEDICAID, SELFPAY ==
--- NOTE | 2025-01-07 16:07 | [facility]H.PTOPEV ---
PT Outpatient Evaluation Rehab PT Outpatient Evaluation Start: 01/07/25 14:43 Freq: Status: Active Protocol: Document 01/07/25 14:43 VALERIE (Rec: 01/07/25 16:07 [email or web address] [id number]) E-signed By Alvaro Cotter, PT Outpatient Therapy Subjective History Subjective History Pt. is a 64 year old male who presents to Outpatient Physical Therapy in [facility] c/o subacute on chronic and constant insidious L-spine and L-sided hip pain and mobility deficits that started in late October of 2024. Pt. describes c/o pain in lumbar and hip region as a constant ache that worsens to a sharp and stabbing P! w/ certain movements. Pt. reports pain is aggravated to a sharp and stabbing description by the initial steps out of his bed in the morning, sudden twisting, lifting, and steering when he is driving. Pt. also reported that pain causes a sensation of pressure on his rectum, but denied paresthesia in saddle region and also no problems using the restroom at this time. Pt. vocalizes checking myself after sensation of pressure on his rectum, but vocalizes not having any bowel movement. Pt. reports having some symptom relief with activity. 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 Recent diagnostic imaging includes radiographs of L-spine/hip on 01/05/25 and recent Ultrasound of L-spine and hip. Results of imaging are not known at this time per pt. report. Pt. RTMD 01/14/25. Prior medical hx consists of UT in 02/24, nephroscopy, fissures, blood in urine, Colitis, and hemorrhoids. Pt. vocalizes no symptom relief with prescribed muscle relaxer, so he discontinued taking medicine and stated I do not like taking pills. Current medication list includes aspirin and atorvastatin. New diagnosis of No cancer in past 12 months? Chief Complaint Pain,Stiff,Weakness Symptom Type Ache,Sharp,Dull,Stabbing,Shooting Symptoms Relieved By Activity Symptoms Aggravated Bending/Stooping,Physical Activity,Twisting,Lifting By Prior Functional None Limitations Current Functional Reaching,Lifting,Housework,Driving,Squatting,Recreation Limitations Activity,Stairs,Bending/Stooping Symptom Description Constant and Continuous,Activity Dependent Level of pain today 1 (0-10) Pain scale - at its 1 best (0-10) Pain scale - at its 8 worst (0-10) Lumbopelvic Eval Posture Thoracic Spine Neutral Posture Standing Position Lumbar Spine Posture Neutral Standing Position Assistive device Assistive Devices None / NA Gait Observation General Gait Pattern No Deviations/Normal Observation Palapation tenderness bilateral lumbar spinal Yes: L>R tenderness paraspinal Yes: L>R tenderness buttock tenderness Yes: R>L tenderness over No symphysis pubis Lumbar/Sacral Tenderness Palpation Findings Accessory Movement L-spine Vertebrae Central P/A [place] Accessory Movements that Elicit Symptoms L3 bilateral L4 bilateral L5 bilateral S1 bilateral Range of Motion Lumbar Spine Active 42 Flexion Range of Motion (degrees) Lumbar Spine Active 15 Extension Range of Motion (degrees) Left Lumbar Spine 6 Lateral Flexion Active Range of Motion (degrees) Right Lumbar Spine 7 Lateral Flexion Active Range of Motion (degrees) Lumbar Spine ROM Pain Limitations Manual Muscle Test Left Knee Extension 5 Normal Strength Grade Knee Flexion 3+ Fair+ Strength Grade Hip Flexion Strength 3+ Fair+ Grade Hip Abduction 4 Good Strength Grade Hip Adduction 5 Normal Strength Grade Hip External 3+ Fair+ Rotation Strength Grade Hip Internal 3 Fair Rotation Strength Grade Hip Extension 3 Fair Strength Grade Ankle Dorsiflexion 3+ Fair+ Strength Grade Gastronemius/Soleus 4+ Good+ Strength Grade Altered Sensation Bilateral Comment Re-asses upon return Special Tests Lumbar Spine Screen Positive Hip Piriformis Test Positive Left Lumbar Long [place] Positive Distraction Test/ Manual Traction Oswestry Index Section 1 Pain Intensity The pain comes and goes and is very mild Section 2 Personal Care ( change my way of washing or dressing in order to avoid Washing,Dresing) pain Section 3 Lifting lifting heavy weights off the floor, but I can manage if they are Section 4 Walking I have no pain when walking Section 5 Sitting Pain prevents me from sitting for more than one hour Section 6 Standing I can stand as long as I want without pain Section 7 Sleeping I get no pain in bed Section 8 Social Life Pain has no significant effect on my social life apart from limiting Section 9 Traveling I get some pain when traveling, but none of my usual forms of travel m Section 10 Changing Degreee of My pain fluctuates, but overall is definitely getting Pain better Score and Risk Level Oswestry Sc 9 Oswestry Risk Level Mild Disability Outpatient Therapy Assessment Impairments Problems/ Palpation Tenderness,Impaired Range of Motion,Impaired Impairmments Strength,Impaired Transfers,Impaired Standing,Impaired Driving,Impaired Bending,Impaired Recreational Activities,Impaired Work Activities,Subjective C/O Pain ,Impaired Self Care/Self Management Prognosis Rehab Potential Good Comment w/ HEP compliancy Clinical Impression Consistent with Yes Diagnosis Consistent with LBP! Additional details: Intervertebral Disc Degeneration PT Patient Goals PT Patient Goals PT Short Term STG #1.) Pt. will demonstrate independence with initial Patient Goals HEP within 2 weeks, for an improved prognosis with Physical Therapy POC. STG #2.) Pt. will subjectively report comparable pain < 5/10 at worst within 2 weeks to improve QOL. STG #3.) Pt. will demonstrate grade 2+ TTP on R piriformis muscle belly area within 2 weeks to improve QOL. 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 will be able to transfer from a prolonged Goals sitting position to a standing position without an increase in pain within 4 weeks to improve their ability to get in and out of their recliner. LTG #2.) Pt. will improve B/L hip extension to a 4+/5 within 4 weeks to improve his ability to independently transfer without increasing pain. LTG #3.) Pt. will improve B/L lumbar lateral flexion AROM grossly to >15 degrees within 4 weeks to improve his ability to safely and efficiently turn the steering wheel during prolonged turns around curves. Outpatient Therapy Plan of Care Treatment Plan May Include Therapeutic Exercise Yes Including Home Exercise Program Manual Therapy Yes Techniques Neuromuscular Re- Yes education Therapeutic Yes Activities to Return to Previous Functional/Work Level ADL/Self Care Yes Education Mechanical Traction Yes Dry Needling Yes Thermal Modalities Yes Electrical Yes Stimulation Ultrasound/ Yes Phonophoresis Iontophoresis Yes Vasopneumatic Yes Compression Pump Massage Yes Eval/Re-Eval Yes Frequency Times per week 2 Duration Number of Weeks 4 Addendums This patient is a No candidate for social or vocational rehab ? Patient/Guardian Yes verbally acknowledges understanding of treatment program and consents to further treatment? Patient/Guardian Yes verbally acknowledges understanding of diagnosis, prognosis and goals for treatment? Eval Complexity PT Charges 20299 - Moderate Complexity Shoulder/Elbow Eval Shoulder Objective Measurements Elbow Objective Measurements PHYSICIAN CERTIFICATION: I certify the specified therapy services for Rk Soler are required, authorized, and reviewed every 30 days.
== END 2025-01-07 23:59 | disposition home or self-care (01) ==
LOC: PT.CARL 13:55
PROVIDERS: PCP Family Medicine; Visit Provider Family Medicine
DX: M51.369 Other intervertebral disc degeneration, lumbar region without mention of lumbar back pain or lower extremity pain (principal); M54.50 Low back pain, unspecified
CPT/HCPCS: 97162